=== PATIENT | female | born 1960 | race Hispanic/Latino ===

== ENCOUNTER 2021-07-31 07:34 | Emergency (ER) | payer BC ==
--- NOTE | 2021-07-31 08:23 | RAD REPORT ---
EXAM DESCRIPTION: CT - Head Brain Wo Cont - 07/31/2021 8:11 am CLINICAL HISTORY: Dizziness COMPARISON: None. TECHNIQUE: Computed axial tomography of the head was obtained. IV contrast was not requested. All CT scans are performed using dose optimization technique as appropriate and may include automated exposure control or mA/KV adjustment according to patient size. FINDINGS: An intracranial bleed is not seen . The ventricles are normal in caliber. No significant hypodense areas within the brain visualized No extra-axial fluid collection is noted. Fluid within the sinuses/ mastoids is not seen. IMPRESSION: No acute intracranial abnormality is seen. If patient's symptoms persist MRI of the bra in would be recommended.
[2021-07-31] MEDS ORDERED: MECLIZINE HCL 12.5 MG TAB ONE (08:41)
[2021-07-31] MEDS ORDERED: ONDANSETRON 4 MG/2 ML VIAL ONE (08:42)
[2021-07-31] MEDS ORDERED: NA CHLORIDE 0.9% 1,000 ML ONE (08:42)
[2021-07-31 08:55] LABS: Protime INR 1.04
[2021-07-31 08:56] LABS: Lymphocytes % 27.2 % (15.3-44.8); MPV 8.4 fL (7.6-11.3); RBC Red Blood Cell Count 4.65 M/uL (3.86-4.86)
--- NOTE | 2021-07-31 09:08 | RAD REPORT ---
EXAM DESCRIPTION: [place] Single View07/31/2021 8:43 am CLINICAL HISTORY: cough COMPARISON: 2017 FINDINGS: The lungs appear clear of acute infiltrate. The heart is normal size IMPRESSION: No acute abnormalities displayed
[2021-07-31 09:13] LABS: Albumin 3.5 g/dL (3.4-5.0); Bilirubin Direct 0.2 mg/dL (0-0.2); Bilirubin Total 0.6 mg/dL (0.2-1.0); Magnesium 2.1 mg/dL (1.8-2.4); Potassium 3.5 mmol/L (3.5-5.1); Protein, Total 7.2 g/dL (6.4-8.2); Troponin High Sensitivity 8.8 pg/mL (<58.9)
--- NOTE | 2021-07-31 10:13 | EDPHYS ---
Physician Documentation [facility] Name: Mary Montero Age: 60 yrs Sex: Female : 1960 Arrival Date: 07/31/2021 Time: 07:39 Bed 6 Private MD: ED Physician Herbert Stephens HPI: 07/31 08:16 This 60 yrs old Female presents to ER via Ambulatory with complaints of akbar Nausea, Dizziness. 08:16 The patient presents to the emergency department with nausea. Onset: The akbar symptoms/episode began/occurred this morning, last night. Possible causes: unknown. Historical: - Allergies: 07:55 No Known Allergies; ph - PMHx: 07:55 Hypertension; ph - Immunization history:: Adult Immunizations unknown. - Social history:: Smoking status: Patient denies any tobacco usage or history of. ROS: 08:18 Constitutional: Negative for fever, chills, and weight loss, Eyes: Negative for injury, akbar pain, redness, and discharge, ENT: Negative for injury, pain, and discharge, Neck: Negative for injury, pain, and swelling, Cardiovascular: Negative for chest pain, palpitations, and edema, Respiratory: Negative for shortness of breath, cough, wheezing, and pleuritic chest pain, Abdomen/GI: Negative for abdominal pain, nausea, vomiting, diarrhea, and constipation, Back: Negative for injury and pain, : Negative for injury, bleeding, discharge, and swelling, MS/Extremity: Negative for injury and deformity, Skin: Negative for injury, rash, and discoloration, Psych: Negative for depression, anxiety, suicide ideation, homicidal ideation, and hallucinations, Allergy/Immunology: Negative for hives, rash, and allergies, Endocrine: Negative for neck swelling, polydipsia, polyuria, polyphagia, and marked weight changes, Hematologic/Lymphatic: Negative for swollen nodes, abnormal bleeding, and unusual bruising. 08:18 Neuro: Positive for dizziness, weakness. Exam: 08:18 Constitutional: This is a well developed, well nourished patient who is awake, alert, akbar and in no acute distress. Head/Face: Normocephalic, atraumatic. Eyes: Pupils equal round and reactive to light, extra-ocular motions intact. Lids and lashes normal. Conjunctiva and sclera are non-icteric and not injected. Cornea within normal limits. Periorbital areas with no swelling, redness, or edema. ENT: Nares patent. No nasal discharge, no septal abnormalities noted. Tympanic membranes are normal and external auditory canals are clear. Oropharynx with no redness, swelling, or masses, exudates, or evidence of obstruction, uvula midline. Mucous membranes moist. Neck: Trachea midline, no thyromegaly or masses palpated, and no cervical lymphadenopathy. Supple, full range of motion without nuchal rigidity, or vertebral point tenderness. No Meningismus. Chest/axilla: Normal chest wall appearance and motion. Nontender with no deformity. No lesions are appreciated. Cardiovascular: Regular rate and rhythm with a normal S1 and S2. No gallops, murmurs, or rubs. Normal PMI, no JVD. No pulse deficits. Respiratory: Lungs have equal breath sounds bilaterally, clear to auscultation and percussion. No rales, rhonchi or wheezes noted. No increased work of breathing, no retractions or nasal flaring. Back: No spinal tenderness. No costovertebral tenderness. Full range of motion. Female : Normal external genitalia. Skin: Warm, dry with normal turgor. Normal color with no rashes, no lesions, and no evidence of cellulitis. MS/ Extremity: Pulses equal, no cyanosis. Neurovascular intact. Full, normal range of motion. Neuro: Awake and alert, GCS 15, oriented to person, place, time, and situation. Cranial nerves II-XII grossly intact. Motor strength 5/5 in all extremities. Sensory grossly intact. Cerebellar exam normal. Normal gait. Psych: Awake, alert, with orientation to person, place and time. Behavior, mood, and affect are within normal limits. 08:18 Abdomen/GI: Inspection: abdomen appears normal, Bowel sounds: normal, Palpation: nontender, Liver: no appreciated palpable abnormalities, Hernia: not appreciated. 10:10 ECG was reviewed by the Attending Physician. [facility] Vital Signs: 07:53 BP 161 / 99; Pulse 59; Resp 18; Temp 97.4; Pulse Ox 98% on R/A; ph 08:56 Weight 81.65 kg; ww 09:30 BP 173 / 96; Pulse 45; Resp 18; Pulse Ox 95% ; ww 10:35 BP 176 / 73; Pulse 50; Resp 18; Pulse Ox 95% ; ww 11:25 BP 173 / 75 Supine; Pulse 51; ww 11:25 BP 183 / 89 Sitting; Pulse 51; ww 11:25 BP 180 / 83 Standing; Pulse 53; ww MDM: 07:44 Patient medically screened. akbar 08:20 Differential diagnosis: Nonspecific abd pain, gastritis, pancreatitis, viral akbar gastroenteritis, gastroenteritis. Differential diagnosis: cardiac arrhythmia, CVA, generalized weakness, hypovolemia, idiopathic dizziness, near-syncope, TIA, vertigo. Data reviewed: vital signs, nurses notes, lab test result(s), EKG, radiologic studies, CT scan, doppler. Data interpreted: environmental monitoring technician: rate is 59 beats/min, rhythm is regular, Pulse oximetry: on room air is 98 %. Test interpretation: by ED physician or midlevel provider: ECG, plain radiologic studies. Counseling: I had a detailed discussion with the patient and/or guardian regarding: the historical points, exam findings, and any diagnostic results supporting the discharge/admit diagnosis, lab results, radiology results. 07/31 07:56 Order name: Basic Metabolic Panel; Complete Time: 10:01 [facility] 07/31 07:56 Order name: CBC with Diff; Complete Time: 10:01 [facility] 07/31 07:56 Order name: LFT's; Complete Time: 10:01 [facility] 07/31 07:56 Order name: Magnesium; Complete Time: 10:01 [facility] 07/31 07:56 Order name: NT PRO-BNP; Complete Time: 10:01 [facility] 07/31 07:56 Order name: PT-INR; Complete Time: 10:01 [facility] 07/31 07:56 Order name: Troponin HS; Complete Time: 10:01 [facility] 07/31 07:56 Order name: XRAY Chest (1 view); Complete Time: 10:01 [facility] 07/31 07:56 Order name: CT Head Brain wo Cont; Complete Time: 10:01 [facility] 07/31 07:56 Order name: US Carotid Artery Bilateral; Complete Time: 11:22 [facility] 07/31 08:16 Order name: Lipase; Complete Time: 10:01 [facility] 07/31 10:22 Order name: Urine Dipstick-Ancillary; Complete Time: 11:22 EDNM 07/31 07:56 Order name: EKG; Complete Time: 07:57 [facility] 07/31 07:56 Order name: Cardiac monitoring; Complete Time: 08:10 [facility] 07/31 07:56 Order name: EKG - Nurse/Tech; Complete Time: 08:10 [facility] 07/31 07:56 Order name: IV Saline Lock; Complete Time: 08:35 [facility] 07/31 07:56 Order name: Labs collected and sent; Complete Time: 08:35 [facility] 07/31 07:56 Order name: O2 Per Protocol; Complete Time: 08:43 [facility] 07/31 07:56 Order name: O2 Sat Monitoring; Complete Time: 08:43 [facility] 07/31 07:56 Order name: Urine Dipstick-Ancillary (obtain specimen); Complete Time: 10:23 [facility] 07/31 10:04 Order name: Orthostatics; Complete Time: 10:42 [facility] EC:10 Rate is 54 beats/min. Rhythm is regular. QRS [place] is Normal. [place] interval is normal. QRS akbar interval is normal. QT interval is normal. No Q waves. T waves are Normal. No ST changes noted. Clinical impression: Sinus bradycardia and No evidence of ischemia. Interpreted by me. Reviewed by me. Administered Medications: 08:56 Drug: NS 0.9% (20 ml/kg) 20 ml/kg Route: IV; Rate: 1 bolus; Site: left antecubital; ww 08:56 Drug: Meclizine 50 mg Route: PO; ww 08:57 Drug: Zofran (Ondansetron) 4 mg Route: IVP; Site: left antecubital; ww 09:00 Drug: NS 0.9% (20 ml/kg) 20 ml/kg Route: IV; Rate: 1 bolus; Site: left antecubital; ww 11:25 Drug: Aspirin 81 mg Route: PO; ww Disposition Summary: 07/31/21 10:12 Discharge Ordered Location: Home akbar Problem: new akbar Symptoms: have improved akbar Condition: Stable akbar Diagnosis - Other peripheral vertigo, unspecified ear akbar - Dizziness and giddiness akbar - Essential (primary) hypertension akbar Followup: akbar - With: Private Physician - When: 2 - 3 days - Reason: Recheck today's complaints, Continuance of care, Re-evaluation by your physician Followup: akbar - With: - When: 2 - 3 days - Reason: Recheck today's complaints, Re-evaluation by your physician Followup: akbar - With: Tyrese Zazueta MD - When: 2 - 3 days - Reason: Recheck today's complaints, Re-evaluation by your physician Discharge Instructions: - Discharge Summary Sheet akbar - Benign Positional Vertigo akbar - Dizziness akbar - Hypertension, Adult akbar - Hypertension, Adult, Zjlq-ck-Wfsk akbar - How to Take Your Blood Pressure, Ivqt-hk-Iwkf akbar - Vertigo, Vrfu-ij-Fuie akbar - Aspirin and Your Heart akbar - Dizziness, Ohwr-mm-Hobf akbar - Managing Your Hypertension akbar Forms: - Medication Reconciliation Form akbar - Thank You Letter akbar - Antibiotic Education akbar - Prescription Opioid Use akbar Prescriptions: - Meclizine 25 mg Oral Tablet - take 1 tablet by ORAL route every 8 hours As needed; 30 tablet; Refills: 0, akbar Product Selection Permitted - Zofran 4 mg Oral Tablet - take 1 tablet by ORAL route every 8 hours As needed; 24 tablet; Refills: 0, akbar Product Selection Permitted Signatures: Dispatcher [employer] Herbert Garcia MD MD cha Hall, Patricia, RN RN ph Wood, Whitney, RN RN
--- NOTE | 2021-07-31 10:13 | ER ---
Nurse's Notes [facility] Name: Mary Montero Age: 60 yrs Sex: Female : 1960 Arrival Date: 07/31/2021 Time: 07:39 Bed 6 Private MD: Diagnosis: Other peripheral vertigo, unspecified ear;Dizziness and giddiness;Essential (primary) hypertension Presentation: 07/31 07:53 Chief complaint: Patient states: Dizziness that started yesterday, was seen at [facility] and sent home, also c/o nausea and headache. Coronavirus screen: Vaccine status: Patient reports receiving the 2nd dose of the covid vaccine. Ebola Screen: No symptoms or risks identified at this time. Initial Sepsis Screen: Does the patient meet any 2 criteria? No. Patient's initial sepsis screen is negative. Does the patient have a suspected source of infection? No. Patient's initial sepsis screen is negative. Risk Assessment: Do you want to hurt yourself or someone else? Patient reports no desire to harm self or others. Onset of symptoms was July 31, 2021. 07:53 Method Of Arrival: Ambulatory 07:53 Acuity: SADI 3 Triage Assessment: 07:56 General: Appears in no apparent distress. comfortable, well groomed, Behavior is calm, ph cooperative, appropriate for age, Denies fever, feeling ill. Pain: Complains of pain in left occipital area and right occipital area. Neuro: Level of Consciousness is awake, alert, obeys commands, Oriented to person, place, time, situation, Reports dizziness. Cardiovascular: No deficits noted. Denies chest pain. GI: Reports nausea, Patient currently denies abdominal pain, vomiting. Derm: Skin is intact, is healthy with good turgor, Skin is pink, warm \T\ dry. Musculoskeletal: Circulation, motion, and sensation intact. Range of motion: intact in all extremities. Historical: - Allergies: 07:55 No Known Allergies; ph - PMHx: 07:55 Hypertension; ph - Immunization history:: Adult Immunizations unknown. - Social history:: Smoking status: Patient denies any tobacco usage or history of. Screenin:57 Abuse screen: Denies threats or abuse. Denies injuries from another. Nutritional ph screening: No deficits noted. Tuberculosis screening: No symptoms or risk factors identified. Fall Risk None identified. Assessment: 09:00 General: Appears in no apparent distress. Behavior is calm, cooperative. Pain: Denies ww pain. Neuro: Level of Consciousness is awake, alert, obeys commands, Oriented to person, place, time, Reports dizziness. Cardiovascular: Patient's skin is warm and dry. Respiratory: Airway is patent Respiratory effort is even, unlabored, Respiratory pattern is regular, symmetrical. GI: Abdomen is non-distended, Reports nausea. Derm: Skin is intact. 10:15 Reassessment: Patient appears in no apparent distress at this time. No changes from ww previously documented assessment. Patient and/or family updated on plan of care and expected duration. Pain level reassessed. Patient is alert, oriented x 3, equal unlabored respirations, skin warm/dry/pink. 11:28 Reassessment: Patient appears in no apparent distress at this time. No changes from ww previously documented assessment. Patient and/or family updated on plan of care and expected duration. Pain level reassessed. Patient is alert, oriented x 3, equal unlabored respirations, skin warm/dry/pink. Vital Signs: 07:53 BP 161 / 99; Pulse 59; Resp 18; Temp 97.4; Pulse Ox 98% on R/A; ph 08:56 Weight 81.65 kg; ww 09:30 BP 173 / 96; Pulse 45; Resp 18; Pulse Ox 95% ; ww 10:35 BP 176 / 73; Pulse 50; Resp 18; Pulse Ox 95% ; ww 11:25 BP 173 / 75 Supine; Pulse 51; ww 11:25 BP 183 / 89 Sitting; Pulse 51; ww 11:25 BP 180 / 83 Standing; Pulse 53; ww ED Course: 07:39 Patient arrived in ED. rg4 07:44 Herbert Stephens MD is Attending Physician. akbar 07:46 Alona Small, ALE is Primary Nurse. choi 07:55 Triage completed. ph 07:56 Arm band placed on Patient placed in an exam room, on a stretcher, on pulse oximetry. ph 08:10 EKG done, by ED staff, reviewed by Herbert Stephens MD. mb7 08:13 CT Head Brain wo Cont In Process Unspecified. EDMS 08:35 Bed in low position. Call light in reach. Side rails up X 1. Door closed. Noise oe minimized. Warm blanket given. 08:35 Basic Metabolic Panel Sent. oe 08:35 CBC with Diff Sent. oe 08:35 LFT's Sent. oe 08:35 Magnesium Sent. oe 08:35 NT PRO-BNP Sent. oe 08:35 PT-INR Sent. oe 08:35 Troponin HS Sent. oe 08:35 Lipase Sent. oe 08:36 Inserted saline lock: 20 gauge in left antecubital area, using aseptic technique. Blood mb7 collected. 08:45 XRAY Chest (1 view) In Process Unspecified. EDMS 09:30 No provider procedures requiring assistance completed. ww 10:12 Tk Uribe MD is Referral Physician. akbar 10:12 Tyrese Zazueta MD is Referral Physician. akbar 10:55 Carotid Artery Bilateral In Process Unspecified. EDMS 11:20 IV discontinued, intact, bleeding controlled, No redness/swelling at site. Pressure mb7 dressing applied. Administered Medications: 08:56 Drug: NS 0.9% (20 ml/kg) 20 ml/kg Route: IV; Rate: 1 bolus; Site: left antecubital; ww 08:56 Drug: Meclizine 50 mg Route: PO; ww 08:57 Drug: Zofran (Ondansetron) 4 mg Route: IVP; Site: left antecubital; ww 09:00 Drug: NS 0.9% (20 ml/kg) 20 ml/kg Route: IV; Rate: 1 bolus; Site: left antecubital; ww 11:25 Drug: Aspirin 81 mg Route: PO; ww Outcome: 10:12 Discharge ordered by . akbar 11:29 Discharged to home ww 11:29 Condition: stable 11:29 Discharge instructions given to patient, Instructed on discharge instructions, follow up and referral plans. medication usage, safety practices, Demonstrated understanding of instructions, follow-up care, medications, Prescriptions given X 2. 11:40 Patient left the ED. Signatures: Dispatcher [employer] EDMS Herbert Stephens MD MD cha Smirch, Shelby, RN RN Rosibel Loyola RN RN ph Garcia, Rubi rg4 Otto Treviño Mary mb7 Vicky Ward RN RN ww Au-StagerAlona RN RN ha Corrections: (The following items were deleted from the chart) 08:36 08:34 Inserted saline lock: 20 gauge in left antecubital area, using aseptic technique. oe Blood collected. oe
[2021-07-31 10:22] LABS: Urine Blood Negative (Negative); Urine Glucose Negative (Negative); Urine Protein Negative (Negative); Urine Specific Gravity 1.015 (1.005-1.030); Urine pH 7.5 (5.0-7.0)
[2021-07-31] MEDS ORDERED: ASPIRIN EC 81 MG TAB PO ONE (10:46)
--- NOTE | 2021-07-31 11:16 | RAD REPORT ---
EXAM DESCRIPTION: USCarotid Artery Bilateral07/31/2021 10:53 am CLINICAL HISTORY: dizziness COMPARISON: 2017 FINDINGS: The velocity of the right internal carotid artery equals 94 cm/sec. The right ICA/CCA rati o 2.5 The velocity of the left internal carotid artery equals 54 cm/sec. The left ICA/CCA ratio .9 Mild plaque is present within the carotid arteries. The carotid arteries are tortuous The vertebral arteries demonstrate antegrade flow IMPRESSION: Mild plaque within the carotid arteries without evidence of a hemodynamically significan t stenosis NASCET criteria used. Mild 0-49% stenosis Moderate 50-69% stenosis Severe 70-99% stenosis
[2021-07-31 11:54] VITALS: O2SAT 95
[2021-07-31 11:57] VITALS: BP 180/83
[2021-07-31 12:03] VITALS: TEMP 97.4
--- NOTE | 2021-08-01 08:59 | EKG ---
Test Date: 2021-07-31 Test Time: 07:56:15 Methodologist: GRACE MEASUREMENT RESULTS: Intervals: Rate: 54 UT: 158 QRSD: 84 QT: 476 QTc: 451 [place]: P: 55 UT: 158 QRS: 43 T: 72 INTERPRETIVE STATEMENTS: Sinus bradycardia Otherwise normal ECG Compared to ECG 04/09/2016 05:46:27 T-wave abnormality no longer present Prolonged QT interval no longer present Electronically Signed On 08-01-21 08:56:44 CDT by Tyrese Zazueta
== END 2021-07-31 11:40 | disposition home or self-care (01) ==
LOC: ER 07:34
DX: H81.399 Other peripheral vertigo, unspecified ear (principal); I10 Essential (primary) hypertension; R53.1 Weakness; R11.0 Nausea
CPT/HCPCS: 93005; 85025; 80048; 36415; 83735; 85610; 80076; 81003; 84484; 83690; 83880; 70450; 71045; 93880; 96374; 99284; J8597; J7030; J2405

== ENCOUNTER 2021-09-14 12:44 | Emergency (ER) | payer SELFPAY ==
--- NOTE | 2021-09-14 14:20 | RAD REPORT ---
EXAM DESCRIPTION: RAD - Knee Left 3 View - 09/14/2021 2:14 pm CLINICAL HISTORY: PAIN COMPARISON: No comparisons FINDINGS: No acute fracture. No malalignment. No significant focal degenerative changes. IMPRESSION: No acute osseous abnormality involving the left knee.
--- NOTE | 2021-09-14 14:21 | RAD REPORT ---
EXAM DESCRIPTION: RAD - C Spine Ap/Lat - 09/14/2021 2:14 pm CLINICAL HISTORY: PAIN COMPARISON: C Spine Ap/Lat dated 04/15/2018 FINDINGS: No acute fracture. No malalignment. Multilevel endplate spurring. Mild disc height loss is present at C6-7. IMPRESSION: No acute osseous abnormality involving the cervical spine.
--- NOTE | 2021-09-14 14:21 | RAD REPORT ---
EXAM DESCRIPTION: RAD - Lumbar Spine 3 Views - 09/14/2021 2:14 pm CLINICAL HISTORY: PAIN COMPARISON: Lumbar Spine 3 Views dated 04/15/2018; LUMBAR SPINE 3 VIEWS dated 06/05/2014; LUMBAR SPINE 3 VIEWS dated 09/02/2013; LUMBAR SPINE 3 VIEWS dated 10/19/2008 FINDINGS: No acute fracture. Grade 1 anterolisthesis of L4 on L5. Partially imaged levoconvex scolio sis. No significant focal degenerative changes. Surgical clips in the right upper quadrant. IMPRESSION: No acute osseous abnormality involving the lumbar spine.
--- NOTE | 2021-09-14 14:49 | EDPHYS ---
Physician Documentation [facility] Name: Mary Montero Age: 60 yrs Sex: Female : 1960 Arrival Date: 09/14/2021 Time: 12:47 Bed 10 Private MD: ED Physician Bhavesh Guerrero HPI: 09/14 14:45 This 60 yrs old Female presents to ER via Ambulatory with complaints of Fall rn Injury, Back Pain. 14:45 Details of fall: The patient fell from an upright position, while walking. Onset: The rn symptoms/episode began/occurred yesterday. Associated injuries: The patient sustained neck injury, injury to the low back. Severity of symptoms: At their worst the symptoms were mild, in the emergency department the symptoms are unchanged. The patient has not experienced similar symptoms in the past. The patient has not recently seen a physician. Historical: - Allergies: 13:16 Pepto-Bismol; ss - PMHx: 13:16 Hypertension; ss - PSHx: 13:16 Cholecystectomy; ss - Immunization history:: Client reports receiving the 2nd dose of the Covid vaccine. - Social history:: Smoking status: Patient denies any tobacco usage or history of. - Family history:: not pertinent. - Hospitalizations: : No recent hospitalization is reported. ROS: 14:45 Constitutional: Negative for fever, chills, and weight loss, Eyes: Negative for injury, rn pain, redness, and discharge, Neck: + neck and lower back pain Cardiovascular: Negative for chest pain, palpitations, and edema, Respiratory: Negative for shortness of breath, cough, wheezing, and pleuritic chest pain, Abdomen/GI: Negative for abdominal pain, nausea, vomiting, diarrhea, and constipation, Back: Negative for injury and pain, MS/Extremity: + left knee pain Skin: Negative for injury, rash, and discoloration, Neuro: Negative for headache, weakness, numbness, tingling, and seizure. Exam: 14:45 Constitutional: This is a well developed, well nourished patient who is awake, alert, rn and in no acute distress. Head/Face: Normocephalic, atraumatic. Eyes: Periorbital areas with no swelling, redness, or edema. Neck: NO midline cervical tenderness Chest/axilla: Normal chest wall appearance and motion. Nontender with no deformity. No lesions are appreciated. Cardiovascular: Regular rate and rhythm . No pulse deficits. Respiratory: No increased work of breathing, no retractions or nasal flaring. Abdomen/GI: Soft, non-tender Skin: Warm, dry MS/ Extremity: Pulses equal, no cyanosis. Neurovascular intact. Full, normal range of motion. Equal circumference. Mild tenderness anterior left knee. Neuro: Awake and alert, GCS 15, oriented to person, place, time, and situation. Cranial nerves II-XII grossly intact. Motor strength 5/5 in all extremities. Sensory grossly intact. Cerebellar exam normal. Normal gait. Vital Signs: 13:15 BP 179 / 83; Pulse 55; Resp 16; Temp 98.0(TE); Pulse Ox 98% on R/A; Weight 90.72 kg; ss Pain 7/10; MDM: 13:21 Patient medically screened. rn 14:45 Differential diagnosis: contusion, fracture, sprain, strain. Data reviewed: vital rn signs, nurses notes, radiologic studies, plain films, and as a result, I will discharge patient. Counseling: I had a detailed discussion with the patient and/or guardian regarding: the historical points, exam findings, and any diagnostic results supporting the discharge/admit diagnosis, radiology results, the need for outpatient follow up, to return to the emergency department if symptoms worsen or persist or if there are any questions or concerns that arise at home. Special discussion: I discussed with the patient/guardian in detail that at this point there is no indication for admission to the hospital. It is understood, however, that if the symptoms persist or worsen the patient needs to return immediately for re-evaluation. ED course: NO acute findings on plain films, will dc home as contusion/muscular pain. 09/14 13:27 Order name: XRAY Knee LEFT 3 view; Complete Time: 14:29 rn 09/14 13:27 Order name: XRAY Lumbar Spine (3 Views); Complete Time: 14:29 rn 09/14 13:27 Order name: XRAY C Spine Ap/lat; Complete Time: 14:29 rn Administered Medications: No medications were administered Disposition Summary: 09/14/21 14:48 Discharge Ordered Location: Home rn Problem: new rn Symptoms: have improved rn Condition: Stable rn Diagnosis - Contusion of unspecified part of neck, initial encounter rn - Contusion of lower back and pelvis rn - Contusion of left knee rn Followup: rn - With: Private Physician - When: As needed - Reason: Recheck today's complaints, Re-evaluation by your physician Discharge Instructions: - Discharge Summary Sheet rn - Contusion rn - Neck Contusion rn Forms: - Medication Reconciliation Form rn - Thank You Letter rn - Antibiotic angle furnaceman - Prescription Opioid Use rn Signatures: Dispatcher [employer] EDBhavesh Martin MD MD rn Smirch, Shelby, RN RN ss
--- NOTE | 2021-09-14 14:49 | ER ---
Nurse's Notes [facility] Name: Mary Montero Age: 60 yrs Sex: Female : 1960 Arrival Date: 09/14/2021 Time: 12:47 Bed 10 Private MD: Diagnosis: Contusion of unspecified part of neck, initial encounter;Contusion of lower back and pelvis;Contusion of left knee Presentation: 09/14 13:15 Chief complaint: Patient states: Back pain after falling yesterday. Coronavirus screen: ss Client denies travel out of the [place] in the last 14 days. Ebola Screen: Patient denies exposure to infectious person. Patient denies travel to an Ebola-affected area in the 21 days before illness onset. Initial Sepsis Screen: Does the patient meet any 2 criteria? No. Patient's initial sepsis screen is negative. Does the patient have a suspected source of infection? No. Patient's initial sepsis screen is negative. Risk Assessment: Do you want to hurt yourself or someone else? Patient reports no desire to harm self or others. Onset of symptoms was September 13, 2021. 13:15 Method Of Arrival: Ambulatory ss 13:15 Acuity: SADI 4 ss Historical: - Allergies: 13:16 Pepto-Bismol; ss - PMHx: 13:16 Hypertension; ss - PSHx: 13:16 Cholecystectomy; ss - Immunization history:: Client reports receiving the 2nd dose of the Covid vaccine. - Social history:: Smoking status: Patient denies any tobacco usage or history of. - Family history:: not pertinent. - Hospitalizations: : No recent hospitalization is reported. Vital Signs: 13:15 BP 179 / 83; Pulse 55; Resp 16; Temp 98.0(TE); Pulse Ox 98% on R/A; Weight 90.72 kg; ss Pain 7/10; ED Course: 12:47 Patient arrived in ED. mr 13:16 Triage completed. ss 13:16 Arm band placed on right wrist. ss 13:21 Bhavesh Guerrero MD is Attending Physician. rn 14:15 XRAY Knee LEFT 3 view In Process Unspecified. EDMS 14:15 XRAY Lumbar Spine (3 Views) In Process Unspecified. EDMS 14:16 XRAY C Spine Ap/lat In Process Unspecified. EDMS 15:11 Marisol Mcfadden, RN is Primary Nurse. iw Administered Medications: No medications were administered Outcome: 14:48 Discharge ordered by . rn 15:11 Patient left the ED. iw Signatures: Dispatcher [employer] EDMI Jocelyn Gomez mr Marisol Mcfadden, RN RN Bhavesh Pérez MD MD rn Smirch, Shelby, RN RN ss
[2021-09-14 15:19] VITALS: BP 179/83; TEMP 98; O2SAT 98
== END 2021-09-14 15:11 | disposition home or self-care (01) ==
LOC: ER 12:44
DX: S10.93XA Contusion of unspecified part of neck, initial encounter (principal); S30.0XXA Contusion of lower back and pelvis, initial encounter; S80.02XA Contusion of left knee, initial encounter; I10 Essential (primary) hypertension; Z88.8 Allergy status to other drugs, medicaments and biological substances
CPT/HCPCS: 72040; 72100; 99282

== ENCOUNTER 2022-10-06 10:12 | Emergency (ER) | payer OTHER, SELFPAY ==
[2022-10-06 10:46] LABS: Hematocrit 41.1 % (36.0-45.0); Lymphocytes % 18.7 % (15.3-44.8); MCV 89.3 fL (80-100); RBC Red Blood Cell Count 4.61 M/uL (3.86-4.86)
[2022-10-06] MEDS ORDERED: MECLIZINE HCL 12.5 MG TAB ONE (10:49)
[2022-10-06] MEDS ORDERED: METOCLOPRAMIDE 10 MG/2mL INJ ONE (10:49)
[2022-10-06] MEDS ORDERED: NA CHLORIDE 0.9% 1,000 ML ONE (10:49)
[2022-10-06] MEDS ORDERED: DIPHENHYDRAMINE 50 MG/ML VIAL ONE (10:49)
[2022-10-06] MEDS ORDERED: ACETAMINOPHEN 500 MG TAB ONE (10:49)
--- NOTE | 2022-10-06 10:54 | RAD REPORT ---
EXAM DESCRIPTION: CT - Head Brain Wo Cont - 10/06/2022 10:43 am CLINICAL HISTORY: DIZZINESS COMPARISON: Head Brain Wo Cont dated 07/31/2021 TECHNIQUE: Noncontrast head CT images were obtained without IV contrast. Multiplanar reformats were generated and reviewed. All CT scans are performed using dose optimization technique as appropriate and may include automated exposure control or mA/KV adjustment according to patient size. FINDINGS: No intracranial hemorrhage, mass, or edema. Midline structures are unremarkable. Normal ventricular caliber for age. Barry-white matter differentiation is preserved, without evidence of acute infarct. No abnormal extra- axial fluid collections. Mastoid air cells and visualized portions of the paranasal sinuses are clear. No acute bony findings. IMPRESSION: No evidence of an acute intracranial process. The findings were communicated to Herbert Stephens on 10/06/2022 at 10:50 hours.
[2022-10-06 11:27] LABS: Albumin 3.6 g/dL (3.4-5.0); Magnesium 2.3 mg/dL (1.6-2.4); Potassium 3.6 mEq/L (3.5-5.1); Protein, Total 7.2 g/dL (6.4-8.2); Troponin High Sensitivity 6.8 pg/mL (<58.9)
--- NOTE | 2022-10-06 11:47 | ER ---
Nurse's Notes [facility] Name: Mary Montero Age: 61 yrs Sex: Female : 1960 Arrival Date: 10/06/2022 Time: 10:12 Bed 13 Private MD: Diagnosis: Benign paroxysmal vertigo, unspecified ear Presentation: 10/06 10:15 Chief complaint: Pt's son states "she woke up fine and then she started feeling dizzy aa5 and with nausea". Pt also reports frontal head pressure. Reports previous dizziness episodes and was told by doctor she had fluid in ears last time it occurred. 10:15 Coronavirus screen: At this time, the client does not indicate any symptoms associated aa5 with coronavirus-19. Ebola Screen: Patient denies travel to an Ebola-affected area in the 21 days before illness onset. Initial Sepsis Screen: Does the patient meet any 2 criteria? No. Patient's initial sepsis screen is negative. Does the patient have a suspected source of infection? No. Patient's initial sepsis screen is negative. Risk Assessment: Do you want to hurt yourself or someone else? Patient reports no desire to harm self or others. Onset of symptoms was October 06, 2022. 10:15 Acuity: SADI 3 aa5 10:15 Method Of Arrival: Ambulatory aa5 Historical: - Allergies: 10:21 Pepto-Bismol; aa5 - PMHx: 10:21 Hypertension; aa5 - PSHx: 10:21 Cholecystectomy; aa5 - Immunization history:: Adult Immunizations unknown. - Social history:: Smoking status: Patient denies any tobacco usage or history of. - Family history:: not pertinent. Screenin:15 [facility] ED Fall Risk Assessment (Adult) Score/Fall Risk Level 0 - 2 = Low Risk. Abuse eh3 screen: Denies threats or abuse. Denies injuries from another. Nutritional screening: No deficits noted. Tuberculosis screening: No symptoms or risk factors identified. Assessment: 10:15 General: Appears in no apparent distress. uncomfortable, Behavior is calm, cooperative, eh3 appropriate for age. Pain: Denies pain. Neuro: Level of Consciousness is awake, alert, obeys commands, Oriented to person, place, time, situation. Neuro: Reports dizziness. Cardiovascular: Capillary refill < 3 seconds Patient's skin is warm and dry. Respiratory: Airway is patent Respiratory effort is even, unlabored, Respiratory pattern is regular, symmetrical. GI: Abdomen is round non-distended, Reports nausea. Derm: Skin is intact, is healthy with good turgor. Musculoskeletal: Circulation, motion, and sensation intact. 11:15 Reassessment: Patient appears in no apparent distress at this time. Patient and/or eh3 family updated on plan of care and expected duration. Pain level reassessed. Patient is alert, oriented x 3, equal unlabored respirations, skin warm/dry/pink. Vital Signs: 10:15 BP 197 / 90; Pulse 60; Resp 16 S; Temp 98.3(TE); Pulse Ox 100% on R/A; aa5 11:15 BP 120 / 71; Pulse 55; Resp 16; Pulse Ox 98% on R/A; eh3 ED Course: 10:15 Patient arrived in ED. ts1 10:15 Richmond Feldman MD is Attending Physician. rt 10:15 Arm band placed on. aa5 10:15 Patient has correct armband on for positive identification. Bed in low position. Call eh3 light in reach. Side rails up X2. Adult w/ patient. Provided Education on: N/A. Pulse ox on. NIBP on. Door closed. Noise minimized. Lights dimmed. Warm blanket given. 10:22 Triage completed. aa5 10:33 Coretta Loyola, RN is Primary Nurse. eh3 10:35 Magnesium Sent. rs5 10:35 Troponin High Sensitivity Sent. rs5 10:35 CMP Sent. rs5 10:35 CBC with Diff Sent. rs5 10:35 Inserted saline lock: 20 gauge in left antecubital area, using aseptic technique. Blood rs5 collected. 10:45 CT Head Brain wo Cont In Process Unspecified. EDMS 11:54 No provider procedures requiring assistance completed. IV discontinued, intact, eh3 bleeding controlled, No redness/swelling at site. Pressure dressing applied. Administered Medications: 11:08 Drug: Meclizine PO 50 mg Route: PO; eh3 11:40 Follow up: Response: No adverse reaction eh3 11:08 Drug: metoCLOPramide IVP 10 mg Route: IVP; Site: left antecubital; eh3 11:40 Follow up: Response: No adverse reaction 3 11:08 Drug: diphenhydrAMINE IVP 25 mg Route: IVP; Site: left antecubital; 3 11:40 Follow up: Response: No adverse reaction 3 11:08 Drug: Acetaminophen PO 1000 mg Route: PO; 3 11:40 Follow up: Response: No adverse reaction 3 11:08 Drug: NS 0.9% IV 1000 ml Route: IV; Rate: 1 bolus; Site: left antecubital; 3 11:52 Follow up: IV Status: Completed infusion; IV Intake: 600ml [facility] Medication: 11:54 VIS not applicable for this client. 3 Intake: 11:52 IV: 600ml; Total: 600ml. 3 Outcome: 11:46 Discharge ordered by MD. rt 11:54 Discharged to home ambulatory, with family. [facility] 11:54 Condition: stable 11:54 Discharge instructions given to patient, family, Instructed on discharge instructions, follow up and referral plans. medication usage, Demonstrated understanding of instructions, follow-up care, medications, Prescriptions given X 1. 12:03 Patient left the ED. [facility] Signatures: Dispatcher [employer] EDKaty Jaime RN RN aa5 Coretta Loyola RN RN eh3 Richmond Feldman MD MD rt Vance Christianson rs5 Janet Leal PAS PAS ts1
--- NOTE | 2022-10-06 11:47 | EDPHYS ---
Physician Documentation [facility] Name: Mary Montero Age: 61 yrs Sex: Female : 1960 Arrival Date: 10/06/2022 Time: 10:12 Bed 13 Private MD: ED Physician Richmond Feldman HPI: 10/06 10:34 This 61 yrs old Female presents to ER via Ambulatory with complaints of rt Dizziness, Nausea. 10:34 Patient presents to the ED with dizziness, nausea. This occurred about 1 year ago, was rt diagnosed with vertigo at that time. She states that symptoms are not as severe at this time but are still present. Reports a head pressure but denies overt headache. Denies other acute complaints at this time or other aggravating alleviating factors, symptoms are moderate severity.. Historical: - Allergies: 10:21 Pepto-Bismol; aa5 - PMHx: 10:21 Hypertension; aa5 - PSHx: 10:21 Cholecystectomy; aa5 - Immunization history:: Adult Immunizations unknown. - Social history:: Smoking status: Patient denies any tobacco usage or history of. - Family history:: not pertinent. ROS: 10:34 Constitutional: Negative for fever, chills, and weight loss, Cardiovascular: Negative rt for chest pain, palpitations, and edema, Respiratory: Negative for shortness of breath, cough, wheezing, and pleuritic chest pain, MS/Extremity: Negative for injury and deformity, Skin: Negative for injury, rash, and discoloration, Psych: Negative for depression, anxiety, suicide ideation, homicidal ideation, and hallucinations. 10:34 Abdomen/GI: Positive for nausea, Negative for abdominal pain. 10:34 Neuro: Positive for dizziness, Negative for altered mental status. Exam: 10:34 Constitutional: This is a well developed, well nourished patient who is awake, alert, rt and in no acute distress. Head/Face: Normocephalic, atraumatic. Chest/axilla: Normal chest wall appearance and motion. Nontender with no deformity. No lesions are appreciated. Cardiovascular: Regular rate and rhythm with a normal S1 and S2. No gallops, murmurs, or rubs. Normal PMI, no JVD. No pulse deficits. Respiratory: Lungs have equal breath sounds bilaterally, clear to auscultation and percussion. No rales, rhonchi or wheezes noted. No increased work of breathing, no retractions or nasal flaring. Abdomen/GI: Soft, non-tender, with normal bowel sounds. No distension or tympany. No guarding or rebound. No evidence of tenderness throughout. Skin: Warm, dry with normal turgor. Normal color with no rashes, no lesions, and no evidence of cellulitis. MS/ Extremity: Pulses equal, no cyanosis. Neurovascular intact. Full, normal range of motion. Psych: Awake, alert, with orientation to person, place and time. Behavior, mood, and affect are within normal limits. 10:34 Eyes: Extraocular muscles intact, pupils equally round and reactive, conjunctiva normal, head impulse and test of skew negative, 1-2 beats of right going lateral nystagmus. 10:34 Neuro: Speech normal, current nerves II through XII intact, strength and sensation intact in upper and lower extremities, no ataxia on [id number]. 10:55 ECG was reviewed by the Attending Physician. rt Vital Signs: 10:15 BP 197 / 90; Pulse 60; Resp 16 S; Temp 98.3(TE); Pulse Ox 100% on R/A; aa5 11:15 BP 120 / 71; Pulse 55; Resp 16; Pulse Ox 98% on R/A; eh3 MDM: 10:17 Patient medically screened. rt 11:47 Differential diagnosis: Peripheral vertigo, CVA. Data reviewed: vital signs, nurses rt notes, lab test result(s), EKG, radiologic studies. Consideration of Admission/Observation Escalation of care including admission/observation considered. HI NTS exam is consistent with a peripheral vertigo, NIHSS is 0, symptoms are improving with treatment in the ED, patient's presentation is most consistent with a benign vestibular vertigo as compared to central vertigo, does not require admission for CVA work-up. I considered the following discharge prescriptions or medication management in the emergency department Medications were administered in the Emergency Department. See MAR. Independent interpretation of the following test(s) in the Emergency Department CT Scan: My interpretation is No hemorrhage seen on interpretation of CT scan images. Test considered but Not performed: MRI: Presentation most consistent with peripheral vertigo, MRI not indicated. Care significantly affected by the following chronic conditions: Hypertension. Counseling: I had a detailed discussion with the patient and/or guardian regarding: the historical points, exam findings, and any diagnostic results supporting the discharge/admit diagnosis, lab results, radiology results, the need for outpatient follow up, to return to the emergency department if symptoms worsen or persist or if there are any questions or concerns that arise at home. 10/06 10:24 Order name: CBC with Diff; Complete Time: 10:54 rt 10/06 10:24 Order name: CMP; Complete Time: 11:32 rt 10/06 10:24 Order name: Troponin High Sensitivity; Complete Time: 11:32 rt 10/06 10:24 Order name: Magnesium; Complete Time: 11:32 rt 10/06 10:24 Order name: CT Head Brain wo Cont; Complete Time: 10:54 rt 10/06 10:38 Order name: EKG; Complete Time: 10:38 rt 10/06 10:38 Order name: EKG - Nurse/Tech; Complete Time: 10:53 rt EC:55 Rate is 50 beats/min. Rhythm is regular, Sinus bradycardia with No ectopy. QRS [place] is rt Normal. AL interval is normal. QRS interval is normal. QT interval is normal. No Q waves. T waves are Normal. No ST changes noted. Interpreted by me. Administered Medications: 11:08 Drug: Meclizine PO 50 mg Route: PO; 3 11:40 Follow up: Response: No adverse reaction eh3 11:08 Drug: metoCLOPramide IVP 10 mg Route: IVP; Site: left antecubital; eh3 11:40 Follow up: Response: No adverse reaction eh3 11:08 Drug: diphenhydrAMINE IVP 25 mg Route: IVP; Site: left antecubital; eh3 11:40 Follow up: Response: No adverse reaction eh3 11:08 Drug: Acetaminophen PO 1000 mg Route: PO; eh3 11:40 Follow up: Response: No adverse reaction eh3 11:08 Drug: NS 0.9% IV 1000 ml Route: IV; Rate: 1 bolus; Site: left antecubital; eh3 11:52 Follow up: IV Status: Completed infusion; IV Intake: 600ml 3 Disposition Summary: 10/06/22 11:46 Discharge Ordered Location: Home rt Problem: new rt Symptoms: have improved rt Condition: Stable rt Diagnosis - Benign paroxysmal vertigo, unspecified ear rt Followup: rt - With: Private Physician - When: 2 - 3 days - Reason: Discharge Instructions: - Discharge Summary Sheet rt - Benign Positional Vertigo rt Forms: - Medication Reconciliation Form rt - Thank You Letter rt - Antibiotic Education rt - Prescription Opioid Use rt - Patient Portal Instructions rt Prescriptions: - Meclizine 25 mg Oral Tablet - take 1 tablet by ORAL route every 8 hours As needed; 30 tablet; Refills: 0, rt Product Selection Permitted Signatures: Dispatcher [employer] Katy Velazquez RN RN aa5 Coretta Loyola RN RN eh3 Richmond Feldman MD MD rt
[2022-10-06 13:24] VITALS: TEMP 98.3
[2022-10-06 13:27] VITALS: BP 120/71; O2SAT 98
--- NOTE | 2022-10-09 11:52 | EKG ---
Test Date: 2022-10-06 Test Time: 10:50:28 [employer] Professor: CAL MEASUREMENT RESULTS: Intervals: Rate: 50 TX: 170 QRSD: 90 QT: 454 QTc: 413 [place]: P: 40 TX: 170 QRS: 34 T: 84 INTERPRETIVE STATEMENTS: Sinus bradycardia Nonspecific T wave abnormality Abnormal ECG Compared to ECG 07/31/2021 07:56:15 T-wave abnormality now present Electronically Signed On 10-09-22 11:47:09 CDT by Jono Read
== END 2022-10-06 12:03 | disposition home or self-care (01) ==
LOC: ER 10:12
DX: H81.10 Benign paroxysmal vertigo, unspecified ear (principal); I10 Essential (primary) hypertension; Z88.8 Allergy status to other drugs, medicaments and biological substances
CPT/HCPCS: 96361; 93005; 85025; 36415; 83735; 84484; 80053; 70450; 96375; 96374; 99284; J8597; J2765; J1200; J7030

== ENCOUNTER → 2023-05-11 | Emergency (ER) | payer OTHER ==
[~2023-05-11] MED LIST: CLINDAMYCIN 900MG/D5W 900 MG/50 ML IVPB IV ONE
[2023-05-11 14:25] LABS: Absolute Lymphocytes (CBC) 1.4 K/uL (0.7-4.9); Hematocrit 39.3 % (36.0-45.0); Lymphocytes % 25.5 % (15.3-44.8); MCV 88.4 fL (80-100); MPV 7.9 fL (7.6-11.3); Platelets 219 thou/uL (152-406); RBC Red Blood Cell Count 4.44 M/uL (3.86-4.86)
--- NOTE | 2023-05-11 14:33 | RAD REPORT ---
EXAM DESCRIPTION: MELIChest Single View05/11/2023 1:38 pm CLINICAL HISTORY: edema COMPARISON: Chest Single View dated 04/13/2023; Chest Single View dated 07/31/2021; Chest Single View d ated 04/08/2016; CHEST SINGLE VIEW dated 02/17/2012 TECHNIQUE: Portable AP view of the chest. FINDINGS: The lungs are clear. No pneumothorax or effusion. The cardiomediastinal contours are unre markable. IMPRESSION: No acute cardiopulmonary process.
--- NOTE | 2023-05-11 14:33 | RAD REPORT ---
EXAM DESCRIPTION: US - Extremity Venous Uni Ltd - 05/11/2023 1:54 pm CLINICAL HISTORY: Pain, swelling COMPARISON: None. TECHNIQUE: Real-time sonographic evaluation of the right lower extremity deep venous system was perf ormed. FINDINGS: Normal compressibility, flow augmentation, phasic flow and spontaneous flow is identified in the right lower extremity deep venous system. No intraluminal filling defects seen. IMPRESSION: No DVT in the right lower extremity.
[2023-05-11 14:34] LABS: Protime INR 1.06
--- NOTE | 2023-05-11 14:34 | RAD REPORT ---
EXAM DESCRIPTION: RAD - Tib Fib Right - 05/11/2023 1:37 pm CLINICAL HISTORY: osteo COMPARISON: No comparisons TECHNIQUE: Right tibia and fibula, 2 views. FINDINGS: No fracture is identified. There is no dislocation or periosteal reaction noted. No acute or suspicious bony finding. Soft tissue swelling most pronounced along the anterior lower leg. Insert the time medial lower leg m ineralization favored to be vascular. Enthesopathy at the Achilles tendon attachment. IMPRESSION: No acute or suspicious osseous abnormality. Soft tissue swelling as above.
[2023-05-11 14:44] LABS: Albumin 3.5 g/dL (3.4-5.0); Bilirubin Total 0.6 mg/dL (0.2-1.0); Potassium 3.4 mEq/L (3.5-5.1); Protein, Total 7.4 g/dL (6.4-8.2)
--- NOTE | 2023-05-11 16:38 | ER ---
Nurse's Notes [facility] Name: Mary Montero Age: 62 yrs Sex: Female : 1960 Arrival Date: 05/11/2023 Time: 12:52 Bed 12 Private MD: Diagnosis: Cellulitis of right lower limb Presentation: 05/11 13:15 Chief complaint: Patient's son or daughter states: her right leg has been getting bad iw over the past 3 weeks, there is darkening around her elizondo and they told her she has issues with her vein. Coronavirus screen: At this time, the client does not indicate any symptoms associated with coronavirus-19. Ebola Screen: Patient negative for fever greater than or equal to 101.5 degrees Fahrenheit, and additional compatible Ebola Virus Disease symptoms Patient denies exposure to infectious person. Patient denies travel to an Ebola-affected area in the 21 days before illness onset. No symptoms or risks identified at this time. Initial Sepsis Screen: Does the patient meet any 2 criteria? No. Patient's initial sepsis screen is negative. Does the patient have a suspected source of infection? No. Patient's initial sepsis screen is negative. Risk Assessment: Do you want to hurt yourself or someone else? Patient reports no desire to harm self or others. Onset of symptoms was April 22, 2023. 13:15 Method Of Arrival: Ambulatory iw 13:15 Acuity: SADI 3 iw Historical: - Allergies: 13:16 Pepto-Bismol; iw - PMHx: 17:19 Hypertension; aa5 - PSHx: 17:19 section; Cholecystectomy; aa5 - Immunization history:: Adult Immunizations up to date. - Social history:: Smoking status: Patient denies any tobacco usage or history of. Screenin:18 [facility] ED Fall Risk Assessment (Adult) Score/Fall Risk Level 0 - 2 = Low Risk. Abuse as6 screen: Denies threats or abuse. Denies injuries from another. Nutritional screening: No deficits noted. Tuberculosis screening: No symptoms or risk factors identified. Assessment: 17:19 General: Appears in no apparent distress. Behavior is calm, cooperative. Pain: as6 Complains of pain in right elizondo. Derm: Wound noted right elizondo. Vital Signs: 13:15 BP 167 / 90; Pulse 68; Resp 16; Temp 98.4; Pulse Ox 96% on R/A; Weight 90.72 kg; Height iw 4 ft. 8 in. ; 17:19 BP 147 / 86; Pulse 71; Resp 16 S; Pulse Ox 99% on R/A; as6 13:15 Body Mass Index 44.84 (90.72 kg, 142.24 cm) iw ED Course: 12:55 Patient arrived in ED. mg5 13:01 Yoly Cornejo PA-C is PHCP. sb4 13:01 Herbert Stephens MD is Attending Physician. sb4 13:16 Triage completed. iw 13:19 Arm band placed on. iw 13:39 Tib Fib Right XRAY In Process Unspecified. EDMS 13:39 Chest Single View XRAY In Process Unspecified. EDMS 13:56 Extremity Venous Uni Ltd US In Process Unspecified. EDMS 14:14 BNP Sent. bc6 14:14 Blood Culture Adult (2) Sent. bc6 14:14 CBC with Diff Sent. bc6 14:14 CMP Sent. bc6 14:14 Lactate w/ 2H reflex if indic. Sent. bc6 14:14 Protime (+inr) Sent. bc6 14:14 Ptt, Activated Sent. bc6 14:14 Inserted saline lock: 20 gauge in right antecubital area, using aseptic technique. bc6 Blood collected. 16:37 Anjum Oliver MD is Referral Physician. sb4 17:18 Bed in low position. Call light in reach. Provided Education on: follow up, abx as6 teaching . 17:18 No provider procedures requiring assistance completed. IV discontinued, intact, as6 bleeding controlled, No redness/swelling at site. Pressure dressing applied. Administered Medications: 16:45 Drug: Clindamycin IVPB 900 mg IVPB once over 30 mins; (mix in 50 mL) Route: IVPB; aa5 Infused Over: 30 mins; Site: right antecubital; 17:17 Follow up: Response: No adverse reaction; IV Status: Completed infusion; IV Intake: [id number] Medication: 17:18 VIS not applicable for this client. as6 Intake: 17:17 IV: 50ml; Total: 50ml. as6 Outcome: 16:37 Discharge ordered by . sb4 17:18 Discharged to home ambulatory, with family, as6 17:18 Condition: stable 17:18 Discharge instructions given to patient, Instructed on discharge instructions, follow up and referral plans. medication usage, Demonstrated understanding of instructions, follow-up care, medications, Prescriptions given X 1, 17:19 Patient left the ED. as6 Signatures: Dispatcher [employer] EDMS Marisol Mcfadden, RN ALE iw Katy Ruiz RN RN aa5 Dany Sutherland RN RN as6 Yoly Cornejo, RICHARD PARere walter4 Janice Krishnan 6 Elysia Wells mg5 Corrections: (The following items were deleted from the chart) 13:19 13:15 Resp 16bpm; Pulse Ox 96% RA; Temp 98.4F; iw brigitte
--- NOTE | 2023-05-11 16:38 | EDPHYS ---
Physician Documentation [facility] Name: Mary Monetro Age: 62 yrs Sex: Female : 1960 Arrival Date: 05/11/2023 Time: 12:52 Bed 12 Private MD: ED Physician Herbert Stephens HPI: 05/11 13:22 This 62 yrs old Female presents to ER via Ambulatory with complaints of Leg sb4 Pain. 13:22 The patient presents with cellulitis of the right elizondo and anterior aspect of right sb4 ankle. Description: swollen, tense, warm. Onset: The symptoms/episode began/occurred 3 week(s) ago. Possible cause(s): unknown. Associated signs and symptoms: Pertinent positives: drainage, erythema, fever, swelling. The patient has not recently seen a physician. Historical: - Allergies: 13:16 Pepto-Bismol; iw - PMHx: 17:19 Hypertension; aa5 - PSHx: 17:19 section; Cholecystectomy; aa5 - Immunization history:: Adult Immunizations up to date. - Social history:: Smoking status: Patient denies any tobacco usage or history of. ROS: 13:22 Cardiovascular: Negative for chest pain, palpitations, and edema, sb4 13:22 Constitutional: Positive for chills, fever, 13:22 MS/extremity: Positive for ecchymosis, pain, swelling, tenderness, warmth, 13:22 All other systems are negative, Exam: 13:22 Constitutional: This is a well developed, well nourished patient who is awake, alert, sb4 and in no acute distress. Head/Face: Normocephalic, atraumatic. Eyes: Extra-ocular motions intact. Periorbital areas with no swelling, redness, or edema. ENT: Mucous membranes moist. Cardiovascular: Regular rate and rhythm with a normal S1 and S2. Respiratory: Lungs have equal breath sounds bilaterally, clear to auscultation and percussion. No rales, rhonchi or wheezes noted. No increased work of breathing, no retractions or nasal flaring. Abdomen/GI: Soft, non-tender, no distension. MS/ Extremity: Pulses equal, no cyanosis. Neurovascular intact. Full, normal range of motion. Neuro: Awake and alert, GCS 15, oriented to person, place, time, and situation. Motor strength 5/5 in all extremities. Sensory grossly intact. 13:22 Skin: bluish purple discoloration of right inferior elizondo and medial ankle with warm, 1+ pitting edema, and tenderness. 1cm wound draining mild amount of fluid. Vital Signs: 13:15 BP 167 / 90; Pulse 68; Resp 16; Temp 98.4; Pulse Ox 96% on R/A; Weight 90.72 kg; Height iw 4 ft. 8 in. ; 17:19 BP 147 / 86; Pulse 71; Resp 16 S; Pulse Ox 99% on R/A; as6 13:15 Body Mass Index 44.84 (90.72 kg, 142.24 cm) iw MDM: 13:11 Patient medically screened. sb4 13:22 Differential diagnosis: abscess, cellulitis, PVD. sb4 14:50 Data reviewed: vital signs, nurses notes, lab test result(s), radiologic studies, and sb4 as a result, I will discharge patient. Historians other than the Patient: Daughter/Son: daughter. Counseling: I had a detailed discussion with the patient and/or guardian regarding the historical points, exam findings, and any diagnostic results supporting the discharge/admit diagnosis, the presence of at least one elevated blood pressure reading (>120/80) during this emergency department visit, lab results, radiology results, the need for outpatient follow up, a general surgeon, to return to the emergency department if symptoms worsen or persist or if there are any questions or concerns that arise at home. 05/11 13:21 Order name: Blood Culture Adult (2) sb4 05/11 13:21 Order name: CBC with Diff; Complete Time: 14:29 sb4 05/11 13:21 Order name: CMP; Complete Time: 14:45 sb4 05/11 13:21 Order name: Lactate w/ 2H reflex if indic.; Complete Time: 14:43 sb4 05/11 13:21 Order name: Protime (+inr); Complete Time: 14:38 sb4 05/11 13:21 Order name: Ptt, Activated; Complete Time: 14:38 sb4 05/11 13:21 Order name: BNP; Complete Time: 14:45 sb4 05/11 13:22 Order name: Wound Culture sb4 05/11 13:21 Order name: Tib Fib Right XRAY; Complete Time: 14:38 sb4 05/11 13:21 Order name: Extremity Venous Uni Ltd US; Complete Time: 14:38 sb4 05/11 13:21 Order name: Chest Single View XRAY; Complete Time: 14:38 sb4 05/11 13:21 Order name: IV Saline Lock - Large Bore; Complete Time: 14:14 sb4 05/11 13:21 Order name: Labs collected and sent; Complete Time: 14:14 sb4 05/11 13:21 Order name: Vital Signs; Complete Time: 15:05 sb4 Administered Medications: 16:45 Drug: Clindamycin IVPB 900 mg IVPB once over 30 mins; (mix in 50 mL) Route: IVPB; aa5 Infused Over: 30 mins; Site: right antecubital; 17:17 Follow up: Response: No adverse reaction; IV Status: Completed infusion; IV Intake: 20ymcu3 Disposition Summary: 05/11/23 16:37 Discharge Ordered Notes: Location: Home sb4 Problem: new sb4 Symptoms: are unchanged sb4 Condition: Stable sb4 Diagnosis - Cellulitis of right lower limb sb4 Followup: sb4 - With: Anjum Oliver MD - When: 2 - 3 days - Reason: Wound Recheck Discharge Instructions: - Discharge Summary Sheet sb4 - Cellulitis, Adult sb4 Forms: - Medication Reconciliation Form sb4 - Thank You Letter sb4 - Antibiotic Education sb4 - Prescription Opioid Use sb4 - Patient Portal Instructions sb4 - Leadership Thank You Letter sb4 Prescriptions: - Bactrim DS 800-160 mg Oral Tablet - take 1 tablet ORAL route every 12 hours for 10 days; 20 tablet; Refills: 0, sb4 Product Selection Permitted Signatures: Dispatcher [employer] Marisol Marquez RN Katy Banuelos RN RN aa5 Dany Sutherland RN RN as6 Yoly Cornejo PA-C PA-C sb4
[2023-05-11 17:27] VITALS: BP 147/86; TEMP 98.4; O2SAT 99
== END ==
LOC: ER 12:52
DX: L03.115 Cellulitis of right lower limb (principal); Z88.8 Allergy status to other drugs, medicaments and biological substances
CPT/HCPCS: 36415; 71045; 80053; 83605; 83880; 85025; 85610; 85730; 87040; 87070; 87077; 87186; 87205; 93971; 96365; 99284

== ENCOUNTER 2023-08-04 12:46 | Inpatient (IN) | payer OTHER ==
[~2023-08-04 12:46] MED LIST changes: +AMLODIPINE 10 MG TAB PO SCH; -CLINDAMYCIN 900MG/D5W 900 MG/50 ML IVPB IV ONE
--- OUTSIDE RECORDS SUMMARY | 2023-08-04 12:49 | XMS REPORT | Continuity of Care Document ---
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 ON 9 [id number] 2023 00:00:00 Problems Condition Name Condition Details Condition Category Status Onset Date Resolution Date Last Treatment Date Treating Clinician Comments Source PVD (periphera l vascular disease) PVD (periphera l vascular disease) Disease Active 05-18 00:00: 00 Miranda Narayan - Externa l Primary hypertensi on Primary hypertensi on Disease Active 05-18 00:00: 00 Miranda Sechanceold - Externa l Mass of lower inner quadrant of left breast Mass of lower inner quadrant of left breast Disease Active 05-18 00:00: 00 Miranda Monsivaisold - Externa l Elevated glucose Elevated glucose Disease Active 05-18 00:00: 00 Miranda Sechanceold - Externa l 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) Disease Active 05-18 00:00: 00 Miranda Sechanceold - Externa l Skin ulcer (multi HCC) Skin ulcer (multi HCC) Disease Active 05-18 00:00: 00 Miranda Armstrong l Allergies, Adverse Reactions, Alerts Allergy Name Allergy Type Status Severity Reaction(s) Onset Date Inactive Date Treating Clinician Comments Source Bismuth Subsalic ylate Propensi ty to adverse reaction s Active Rash 05-18 00:00: 00 Miranda Dyera l Social History Social Habit Start Date Stop Date Quantity Comments Source Sexual orientation Kristin cm Sylvain - External History of Social function 2023-07-04 00:00:00 2023-07-04 00:00:00 Miranda Nraayan - External Alcoholic beverage intake 2023-07-04 00:00:00 2023-07-04 00:00:00 Lifetime non-drinker (finding) Miranda Narayan - External Alcohol intake 2023-06-04 00:00:00 2023-06-04 00:00:00 Lifetime non-drinker (finding) Miranda Narayan - External Sex assigned at 1960 00:00:00 1960 00:00:00 Miranda Narayan - External Smoking Status Start Date Stop Date Source Never smoked tobacco Miranda Narayan - External Medications Ordered Medication Name Filled Medication Name Start Date Stop Date Current Medication? Ordering Clinician Indication Dosage Frequency Signature (SIG) Comments Components Source AMLODIPINE BENZOATE OR 07-03 15:32: 31 07-03 00:00 :00 No [id number] 5mg Take 5 mg by mouth daily. Miranda toussaint CYCLOBENZAP RINE HCL OR 07-03 15:32: 31 07-03 00:00 :00 No 10mg QD Take 10 mg by mouth nightly as needed (musce spasm). Miranda toussaint Losartan Potassium (COZAAR) 100 MG oral Tablet 07-03 00:00: 00 Yes [id number] 100mg Take 1 tablet (100 mg total) by mouth daily. Miranda toussaint Spironolact one 25 MG oral Tablet 07-03 00:00: 00 Yes [id number] 25mg Take 1 tablet (25 mg total) by mouth daily. Miranda toussaint Spironolact one 25 MG oral Tablet 4-09 00:00: 00 07-03 00:00 :00 No [id number] 25mg Take 1 tablet by mouth once daily Miranda toussaint AMLODIPINE BENZOATE OR 3-11 15:17: 14 Yes [id number] 5mg Take 5 mg by mouth daily. Miranda toussaint CYCLOBENZAP RINE HCL OR 3-11 15:17: 14 Yes 10mg QD Take 10 mg by mouth nightly as needed (musce spasm). Miranda toussaint hydroCHLORO thiazide 12.5 MG oral Capsule 3-05 00:00: 00 Yes [id number] 12.5mg Take 1 capsule (12.5 mg total) by mouth daily. Miranda toussaint CYCLOBENZAP RINE HCL OR 2-23 16:44: 20 Yes 10mg QD Take 10 mg by mouth nightly as needed (musce spasm). Miranda toussaint AMLODIPINE BENZOATE OR 05-18 16:40: 15 Yes [id number] 5mg Take 5 mg by mouth daily. Miranda toussaint TRIMETHOPRI M-SULFAMETH OXAZOLE (BACTRIM DS) 800-160 MG oral Tablet 2-17 00:00: 00 07-03 00:00 :00 No [id number] 1{tbl} Take 1 tablet by mouth every 12 hours FOR 10 DAYS. Miranda toussaint Spironolact one 25 MG oral Tablet 2-12 00:00: 00 Yes [id number] 25mg Take 1 tablet (25 mg total) by mouth daily. Miranda toussaint Losartan Potassium (COZAAR) 100 MG oral Tablet 2-12 00:00: 00 07-03 00:00 :00 No [id number] 100mg Take 1 tablet (100 mg total) by mouth daily. Miranda toussaint Amoxicillin -Pot Clavulanate 875-125 MG oral Tablet 1-19 00:00: 00 Yes [id number] 1{tbl} Take 1 tablet by mouth every 12 hours FOR 10 DAYS. Miranda Narayan - Externa breana Vitamin D, Ergocalcife rol, 1.25 MG (26673 UT) oral Capsule 03-31 00:00: 00 Yes [id number] Take 1 capsule (50,000 units total) by mouth once a week. Miranda Monsivaisold - Externa l Vitamin D, Ergocalcife rol, 1.25 MG (25657 UT) oral Capsule 03-31 00:00: 00 Yes 1{capsu le} Take 1 capsule (50,000 units total) by mouth once a week. Miranda Narayan - Externa l Vital Signs Vital Name Observation Time Observation Value Comments S damarilaura Systolic blood pressure 2023-07-04 20:17:00 132 mm[Hg] Miranda Seybo ld - External Diastolic blood pressure 2023-07-04 20:17:00 78 mm[Hg] Miranda Seybo ld - External Heart rate 2023-07-04 20:17:00 68 /min Kelse y Seybold - External Body temperature 2023-07-04 20:17:00 36.67 Agnieszka Miranda Seybold - External Respiratory rate 2023-07-04 20:17:00 18 /min Miranda Seprashant - External Body height 2023-07-04 20:17:00 154.9 cm Sanjana meza Seybson - External Body weight 2023-07-04 20:17:00 97.07 kg Sanjana ey Seybold - External BMI 2023-07-04 20:17:00 40.43 kg/m2 Sanjana ey Seybold - External Oxygen saturation in Arterial blood by Pulse oximetry 2023-07-04 20:17:00 98 /min Miranda chanceo ld - External Systolic blood pressure 2023-06-04 20:11:00 144 mm[Hg] Miranda Seybo ld - External Diastolic blood pressure 2023-06-04 20:11:00 62 mm[Hg] Miranda Seybo ld - External Heart rate 2023-06-04 20:11:00 67 /min Kelse y Seybold - External Body temperature 2023-06-04 20:11:00 37.06 Agnieszka Miranda Seybold - External Respiratory rate 2023-06-04 20:11:00 16 /min Miranda Seybold - External Body height 2023-06-04 20:11:00 154.9 cm Sanjana ey Seybold - External Body weight 2023-06-04 20:11:00 96.163 kg Sanjana ey Seybold - External BMI 2023-06-04 20:11:00 40.06 kg/m2 Sanjana ey Seybold - External Systolic blood pressure 2023-05-18 22:11:00 132 mm[Hg] Miranda Seybo ld - External Diastolic blood pressure 2023-05-18 22:11:00 78 mm[Hg] Miranda Seybo ld - External Heart rate 2023-05-18 22:11:00 70 /min Shaanse y Seybold - External Body temperature 2023-05-18 22:11:00 37.11 Agnieszka Miranda Seybold - External Respiratory rate 2023-05-18 22:11:00 15 /min Miranda Seybold - External Body height 2023-05-18 22:11:00 154.9 cm Sanjana ey Seybold - External Body weight 2023-05-18 22:11:00 96.163 kg Sanjana ey Seybold - External BMI 2023-05-18 22:11:00 40.06 kg/m2 Sanjana ey Seybold - External Encounters Start Date/Time End Date/Time Encounter Type Admission Type Attending [facility] Care Department Encounter ID Source 2023-07-30 10:15:00 2023-07-30 10:15:00 Outpatient MIRANDA KEBEDE [id number] Miranda Narayan 2023-07-30 08:20:00 2023-07-30 08:20:00 Outpatient MIRANDA KEBEDE [id number] Miranda Narayan 2023-07-24 00:00:00 2023-07-24 00:00:00 Outpatient MIKHAIL SALDIVAR [id number] Miranda Narayan 2023-07-09 00:00:00 2023-07-09 00:00:00 Outpatient MIKHAIL SALDIVAR [id number] Miranda Narayan 2023-07-04 16:30:00 2023-07-04 16:30:00 Outpatient LABKei MIRANDA KEBEDE [id number] Miranda Seybson 2023-07-04 15:30:00 2023-07-04 15:30:00 Outpatient JANNA, MIKHAIL MIRANDA KEBEDE [id number] Miranda Seybold 2023-07-03 00:00:00 2023-07-03 00:00:00 Outpatient HUNDBreana, MIKHAIL MIRANDA KEBEDE [id number] Miranda Seybson 2023-06-29 11:15:00 2023-06-29 11:15:00 Outpatient MIRANDA KEBEDE [id number] Miranda Seybold 2023-06-29 09:20:00 2023-06-29 09:20:00 Outpatient MIRANDA KEBEDE [id number] Miranda Seybson 2023-06-11 15:30:00 2023-06-11 15:30:[address] MIRANDA KEBEDE [id number] Miranda Seybold 2023-06-07 00:00:00 2023-06-07 00:00:00 Outpatient HUNDL, MIKHAIL MIRANDA KEBEDE [id number] Miranda Seybold 2023-06-04 16:15:00 2023-06-04 16:15:00 Outpatient LAB90 MIRANDA KEBEDE [id number] Miranda Seybold 2023-06-04 15:30:00 2023-06-04 15:30:00 Outpatient HUNDBreana, MIKHAIL MIRANDA KEBEDE [id number] Miranda ybold 2023-06-04 00:00:00 2023-06-04 00:00:00 Outpatient HUNDL, MIKHAIL KEBEDE [id number] Miranda Seybold 2023-05-29 00:00:00 2023-05-29 00:00:00 Outpatient HUNDL, MIKHAIL KEBEDE [id number] Miranda Seybold 2023-05-29 00:00:00 2023-05-29 00:00:00 Outpatient HUNDL, MIKHAIL KEBEDE [id number] Miranda Seybold 2023-05-23 07:55:00 2023-05-23 07:55:00 Outpatient LAB90 MIRANDA KEBEDE [id number] Miranda Seybold 2023-05-22 00:00:00 2023-05-22 00:00:00 Outpatient MIKHAIL SALDIVAR MIRANDA [id number] Miranda [facility] 2023-05-18 16:30:00 2023-05-18 16:30:00 Outpatient MIKHAIL SALDIVARSEY [id number] Miranda [facility] 2023-05-18 16:30:00 2023-05-18 16:30:00 Outpatient MIKHAIL SALDIVAR MIRANDA [id number] Miranda [facility] 2023-05-18 00:00:00 2023-05-18 00:00:00 Outpatient MIKHAIL SALDIVAR MIRANDA MIRANDA [id number] [facility] Notes Date/Time Note Provider Source 2023-07-04 15:21:12 [id number] MhtQHeBLYOLonleFE [id number]1 T15:21:12 Chief ComplaintPatient presents withFollow-up4 week follow up for B/PPaDarion Petitectronically signed by Raine Fuentes LVN at 07/04/2023 3:21 PM [id number] [id number]:21:52Nurse [id number]. [id number] for patient [id number] NoteLNNARRATIVEFormatted C-CDA narrative textCOLORADO RIVER MEDICAL CENTERIMANIOhioHealth [facility] [facility] [id number] [id number]:21:521.2.840.915279.1.7 2.3.15|[id number]. [id number] [facility] 2023-06-04 15:18:22 /EK9/Rlv7yC1cojw29m0 iQGTxb6XhqfdKqrX7 UOTtys0gnEV1hqCHlpviIl2fM0+2023-06-04 T15:18:22 Chief ComplaintPatient [place] [id number] [id number]:19:11Nurse [id number]. [id number] for patient jtrw79544-7Lpgvv NoteLNNARRATIVEFormatted C-CDA narrative [facility]2727 [facility].[id number] [id number]:19:111.2.840.070012.1.7 2.3.15|1.2.840.678602.1.13.131.2.7.2. [id number] [facility] 2023-05-18 16:17:29 rYVtB1n1TIuWg4ybOY1+ fry7T7y10upyFebpD +Fae8mK+Cn/F3vegbww4IeWlwJO2379-79-09 T16:17:29 Chief ComplaintPatient presents withEstablish CareLast wellness over a year ago.Hospital F/UFollow up [facility] Sunday for discoloration in right [place] [id number] [id number]:19:39Nurse [id number].2. [id number] for patient [id number] NoteLNNARRATIVEFormatted C-CDA narrative textAsp[facility]aus[facility]2727 [facility].[id number]:19:391.2.840.990681.1.7 2.3.15|1.2.840.235990.1.13.131.2.7.2. [id number] [facility]"
--- NOTE | 2023-08-04 13:17 | RAD REPORT ---
EXAM DESCRIPTION: RAD - Chest Single View - 08/04/2023 1:10 pm CLINICAL HISTORY: CHEST PAIN Chest pain. COMPARISON: Chest Single View dated 05/11/2023; Chest Single View dated 04/13/2023; Chest Single View dated 07/31/2021; Chest Single View dated 04/08/2016 FINDINGS: Portable technique limits examination quality. The lungs are grossly clear. The heart is normal in size. No displaced fractures. IMPRESSION: No acute intrathoracic process suspected.
[2023-08-04 13:18] LABS: Absolute Eosinophils 0.1 K/uL (0-0.5); Absolute Lymphocytes (CBC) 1.4 K/uL (0.7-4.9); Absolute Monocytes 0.3 K/uL (0.1-1.3); Absolute Neutrophil 3.1 K/uL (1.8-8.0); Eosinophils % 2.2 % (0-4.4); Hematocrit 42.6 % (36.0-45.0); Hemoglobin 14.1 g/dL (12.0-15.0); Lymphocytes % 28.5 % (15.3-44.8); MCH 29.5 pg (27.0-35.0); MCHC 33.1 g/dL (32.0-36.0); MCV 88.9 fL (80-100); MPV 8.4 fL (7.6-11.3); Neutrophils % 62.3 % (41.7-73.7); Nucleated Red Blood Cells % 0.1 % (0-0); Platelets 200 thou/uL (152-406); RBC Red Blood Cell Count 4.79 M/uL (3.86-4.86); Red Cell Distribution Width 12.7 % (12.1-15.2)
--- NOTE | 2023-08-04 13:28 | RAD REPORT ---
EXAM DESCRIPTION: CT - Head Brain Wo Cont - 08/04/2023 1:18 pm CLINICAL HISTORY: HEADACHE Headache, drowsiness COMPARISON: Head Brain Wo Cont dated 10/06/2022; Head Brain Wo Cont dated 07/31/2021 TECHNIQUE: All CT scans are performed using dose optimization technique as appropriate and may inclu de automated exposure control or mA/KV adjustment according to patient size. FINDINGS: No intracranial hemorrhage, hydrocephalus or extra-axial fluid collection.No areas of brai n edema or evidence of midline shift. The paranasal sinuses and mastoids are clear. The calvarium is intact. IMPRESSION: No acute intracranial abnormality.
[2023-08-04 13:39] LABS: Albumin 3.7 g/dL (3.4-5.0); Anion Gap 8.4 mEq/L (5.0-15.0); Bilirubin Direct 0.2 mg/dL (0-0.2); Bilirubin Indirect, Calculated 0.8 mg/dL (0.2-0.8); Globulin 3.6 g/dL (2.3-3.5); Potassium 3.4 mEq/L (3.5-5.1); Protein, Total 7.3 g/dL (6.4-8.2); Troponin High Sensitivity 15.7 pg/mL (<58.9)
--- NOTE | 2023-08-04 15:45 | ER ---
Nurse's Notes [facility] Name: Mary Montero Age: 62 yrs Sex: Female : 1960 Arrival Date: 08/04/2023 Time: 12:46 Bed 7 Private MD: Diagnosis: NSTEMI Presentation: 08/03 13:01 Chief complaint: Patient states: CP, dizzy started while shopping at [employer] earlier today. ll1 Pain to neck area and L arm. Coronavirus screen: Client denies travel out of the [place] in the last 14 days. At this time, the client does not indicate any symptoms associated with coronavirus-19. Ebola Screen: Patient denies travel to an Ebola-affected area in the 21 days before illness onset. Initial Sepsis Screen: Does the patient meet any 2 criteria? No. Patient's initial sepsis screen is negative. Does the patient have a suspected source of infection? No. Patient's initial sepsis screen is negative. Risk Assessment: Do you want to hurt yourself or someone else? Patient reports no desire to harm self or others. Onset of symptoms was August 04, 2023. 13:01 Method Of Arrival: Ambulatory ll1 13:01 Acuity: SADI 3 ll1 Triage Assessment: 13:00 General: Appears uncomfortable, Behavior is calm, cooperative, appropriate for age. ll1 Pain: Complains of pain in chest Pain radiates to left arm. Cardiovascular: Reports chest pain, fatigue, palpitations. Respiratory: Reports shortness of breath. Historical: - Allergies: 12:51 Pepto-Bismol; ll1 - PMHx: 12:51 Hypertension; ll1 13:01 Hypercholesterolemia; ll1 - PSHx: 12:51 Cholecystectomy; section; ll1 - Immunization history:: Adult Immunizations up to date. - Infectious Disease History:: Denies. - Social history:: Smoking status: Patient denies any tobacco usage or history of. Screenin:[facility] Fall Risk Assessment (Adult) History of falling in the last 3 months, as6 including since admission No falls in past 3 months (0 pts) Confusion or Disorientation No (0 pts) Intoxicated or Sedated No (0 pts) Impaired Gait No (0 pts) Mobility Assist Device Used No (0 pt) Altered Elimination No (0 pt) Score/Fall Risk Level 0 - 2 = Low Risk Oriented to surroundings, Maintained a safe environment, Educated pt \T\ family on fall prevention, incl call for assistance when getting out of bed, Assessed \T\ reinforced patient's understanding of fall precautions. Abuse screen: Denies threats or abuse. Denies injuries from another. Nutritional screening: No deficits noted. Tuberculosis screening: No symptoms or risk factors identified. Assessment: 13:13 General: Appears in no apparent distress. comfortable, Behavior is calm, cooperative. as6 Pain: Complains of pain in chest Pain radiates to left arm. Neuro: Level of Consciousness is awake, alert, obeys commands, Oriented to person, place, time, situation. Cardiovascular: Reports chest pain, Capillary refill < 3 seconds Patient's skin is warm and dry. Rhythm is sinus rhythm. Respiratory: Airway is patent Trachea midline Respiratory effort is even, unlabored, Respiratory pattern is regular, symmetrical. GI: No deficits noted. No signs and/or symptoms were reported involving the gastrointestinal system. : No deficits noted. No signs and/or symptoms were reported regarding the genitourinary system. EENT: No deficits noted. No signs and/or symptoms were reported regarding the EENT system. Derm: Skin is intact, is healthy with good turgor. Musculoskeletal: Circulation, motion, and sensation intact. 14:11 General: updated pt and family on awaiting repeat EKG and labs. no complaints or as6 concerns at this time . 17:00 General: report faxed . as6 Vital Signs: 13:01 BP 193 / 100; Pulse 75; Resp 18; Temp 97.4; Pulse Ox 94% on R/A; Weight 93.44 kg; ll1 Height 5 ft. 0 in. ; 14:12 BP 105 / 84; Pulse 75; Resp 15 S; Pulse Ox 96% on R/A; as6 15:14 BP 185 / 96; Pulse 59; Resp 16 S; Pulse Ox 94% on R/A; as6 16:57 BP 165 / 73; Pulse 61; Resp 16 S; Pulse Ox 95% on R/A; as6 13:01 Body Mass Index 40.23 (93.44 kg, 152.4 cm) ll1 ED Course: 12:49 Patient arrived in ED. ts1 12:50 Gabriela Oleary FNP is PHCP. jh7 12:50 Sandy, Yaya, MD is Attending Physician. 7 12:51 Arm band placed on Patient placed in an exam room, on a stretcher. ll1 12:55 EKG completed in triage. Results shown to MD. ll1 12:56 Dany Sutherland, RN is Primary Nurse. as6 13:02 Triage completed. ll1 13:02 Bed in low position. Call light in reach. Side rails up X 1. Client placed on as6 continuous cardiac and pulse oximetry monitoring. NIBP monitoring applied. cafeteria monitor on. 13:04 EKG done, by ED staff, reviewed by Yaya Sandy MD. as6 13:11 XRAY Chest (1 view) In Process Unspecified. EDMS 13:13 LFT's Sent. as6 13:13 Basic Metabolic Panel Sent. as6 13:13 CBC with Diff Sent. as6 13:13 NT PRO-BNP Sent. as6 13:13 Troponin HS Sent. as6 13:13 Inserted saline lock: 20 gauge in right antecubital area, using aseptic technique. as6 Blood collected. 13:20 CT Head Brain wo Cont In Process Unspecified. EDMS 15:08 Troponin High Sensitivity Sent. as6 15:44 Freddy Guerrero MD is Hospitalizing Provider. ec2 15:58 Hospitalizing Provider role handed off by Freddy Guerrero MD ec2 15:58 Anuradha Young MD is Hospitalizing Provider. ec2 17:11 Provided Education on: need for admit. as6 17:11 No provider procedures requiring assistance completed. Patient admitted, IV remains in as6 place. Administered Medications: 15:52 Drug: Aspirin PO Chewable Tablet 324 mg PO once; 81 mg tablets x 4 Route: PO; as6 15:52 Drug: Enoxaparin Sub-Q 1 mg/kg Sub-Q once Route: Sub-Q; Site: right lower abdomen; as6 Medication: 13:01 VIS not applicable for this client. as6 Outcome: 15:44 Decision to Hospitalize by Provider. ec2 17:11 Condition: stable as6 17:11 Instructed on the need for admit, 17:33 Patient left the ED. hb Signatures: Dispatcher [employer] EDMS Alona Martinez RN RN Ean Quiros RN RN [facility] Dany Sutherland, RN RN as6 Gabriela Oleary, TEACHERS' AIDE TEACHERS' AIDE jh7 Janet Leal PAS PAS ts1 Yaya Sandy MD MD ec2
--- NOTE | 2023-08-04 15:45 | EDPHYS ---
Physician Documentation [facility] Name: Mary Montero Age: 62 yrs Sex: Female : 1960 Arrival Date: 08/04/2023 Time: 12:46 Bed 7 Private MD: ED Physician Yaya Sandy HPI: 08/03 13:06 This 62 yrs old Female presents to ER via Ambulatory with complaints of ec2 Shortness Of Breath, Chest Pain. 13:06 Patient arrives today for evaluation of chest pain. States that she was shopping at the [employer] and noted some chest discomfort. Patient reports some associated lightheadedness as if she were in a pass out. Patient reports no nausea or vomiting. Patient also reports some shortness of breath associated with this. Patient reports history of hypertension as well as hyperlipidemia.. 13:07 Patient also with complaints of headache as well as lightheadedness. . ec2 Historical: - Allergies: 12:51 Pepto-Bismol; ll1 - PMHx: 12:51 Hypertension; ll1 13:01 Hypercholesterolemia; ll1 - PSHx: 12:51 Cholecystectomy; section; ll1 - Immunization history:: Adult Immunizations up to date. - Infectious Disease History:: Denies. - Social history:: Smoking status: Patient denies any tobacco usage or history of. ROS: 13:06 Constitutional: as per hpi ec2 Exam: 13:06 Constitutional: GEN: NAD Head: atraumatic Eyes: EOMI Ears: External ears are ec2 normal. CV: regular rate LUNGS: no respiratory distress ABD: non-distended SKIN: no evidence of rashes MSK: no evidence of trauma NEURO: moves all extremities equally, cranial nerves II through XII intact, strength intact all 4 extremities., No pronator drift appreciated. Vital Signs: 13:01 BP 193 / 100; Pulse 75; Resp 18; Temp 97.4; Pulse Ox 94% on R/A; Weight 93.44 kg; ll1 Height 5 ft. 0 in. ; 14:12 BP 105 / 84; Pulse 75; Resp 15 S; Pulse Ox 96% on R/A; as6 15:14 BP 185 / 96; Pulse 59; Resp 16 S; Pulse Ox 94% on R/A; as6 16:57 BP 165 / 73; Pulse 61; Resp 16 S; Pulse Ox 95% on R/A; as6 13:01 Body Mass Index 40.23 (93.44 kg, 152.4 cm) ll1 MDM: 12:50 Patient medically screened. 7 13:06 Data reviewed: vital signs. ED course: Patient arrives today for evaluation of chest ec2 pain. Examination remarkable for well-appearing nontoxic dividual is otherwise in no acute distress with a reassuring examination and reassuring hemodynamics. Will obtain lab work, chest x-ray, CT scan of the head. EKG obtained, independently reviewed and interpreted by me, shows normal sinus rhythm, rate of 77, no acute ST segment elevations, intervals are nonconcerning. Patient reports chest pain at this time is resolved. 13:30 ED course: CBC is reassuring, chest x-ray independently reviewed and interpreted by me, ec2 shows no acute intrathoracic process. CT scan of the head shows no acute intracranial process.. 13:57 ED course: Metabolic profile shows hypokalemia with a potassium of 3.4, minimally ec2 elevated BNP at 146. LFTs are unremarkable, troponin within normal ranges, CBC reassuring. Will obtain repeat EKG and troponin at 2-hour lita . 15:10 ED course: Repeat EKG independently reviewed and interpreted by me, shows normal sinus ec2 rhythm, rate of 64, no acute ST segment elevations, intervals are nonconcerning.. 15:43 ED course: Repeat troponin elevated compared to initial, initial at 15.7, repeat at ec2 49.6. Will give the patient aspirin, Lovenox, admit for NSTEMI. Discussed case with hospitalist, pending admission. Patient updated on plan of care and agreeable. . 08/03 13:06 Order name: Basic Metabolic Panel; Complete Time: 13:57 ec2 08/03 13:06 Order name: CBC with Diff; Complete Time: 13:30 ec2 08/03 13:06 Order name: NT PRO-BNP; Complete Time: 13:57 ec2 08/03 13:06 Order name: Troponin HS; Complete Time: 13:57 ec2 08/03 13:06 Order name: LFT's; Complete Time: 13:57 ec2 08/03 15:03 Order name: Troponin High Sensitivity; Complete Time: 15:41 ec2 08/03 16:45 Order name: Thyroid Stimulating Hormone EDMS 08/03 16:45 Order name: Urinalysis w/ reflexes EDMS 08/03 16:45 Order name: CBC with Automated Diff EDMS 08/03 16:45 Order name: CBC with Automated Diff EDMS 08/03 16:45 Order name: CBC with Automated Diff EDMS 08/03 16:45 Order name: CBC with Automated Diff EDMS 08/03 16:45 Order name: Comprehensive Metabolic Panel EDMS 08/03 16:45 Order name: Comprehensive Metabolic Panel EDMS 08/03 16:45 Order name: Comprehensive Metabolic Panel EDMS 08/03 16:45 Order name: Comprehensive Metabolic Panel EDMS 08/03 16:45 Order name: Lipid Profile EDMS 08/03 16:45 Order name: Lipid Profile EDMS 08/03 16:45 Order name: Magnesium EDMS 08/03 16:45 Order name: Magnesium EDMS 08/03 16:45 Order name: Magnesium EDMS 08/03 16:45 Order name: Magnesium EDMS 08/03 16:45 Order name: Protime (+INR) EDMS 08/03 16:45 Order name: Protime (+INR) EDMS 08/03 16:45 Order name: PTT, Activated Partial Thromb EDMS 08/03 16:45 Order name: PTT, Activated Partial Thromb EDMS 08/03 16:45 Order name: Troponin High Sensitivity EDMS 08/03 16:45 Order name: Troponin High Sensitivity EDMS 08/03 16:45 Order name: Troponin High Sensitivity EDMS 08/03 13:06 Order name: XRAY Chest (1 view); Complete Time: 13:30 ec2 08/03 13:06 Order name: CT Head Brain wo Cont; Complete Time: 13:30 ec2 08/03 13:06 Order name: EKG; Complete Time: 13:06 ec2 08/03 16:45 Order name: CONS Physician Consult EDMS 08/03 13:06 Order name: Cardiac monitoring; Complete Time: 13:06 ec2 08/03 13:06 Order name: EKG - Nurse/Tech; Complete Time: 13:06 ec2 08/03 13:06 Order name: IV Saline Lock; Complete Time: 13:13 ec2 08/03 13:06 Order name: Labs collected and sent; Complete Time: 13:13 ec2 08/03 13:06 Order name: O2 Per Protocol; Complete Time: 13:06 ec2 08/03 13:06 Order name: O2 Sat Monitoring; Complete Time: 13:06 ec2 08/03 13:58 Order name: Misc. Order: repeat ekg/trop at 1515; Complete Time: 15:08 ec2 08/03 15:03 Order name: EKG - Nurse/Tech; Complete Time: 15:08 ec2 Administered Medications: 15:52 Drug: Aspirin PO Chewable Tablet 324 mg PO once; 81 mg tablets x 4 Route: PO; as6 15:52 Drug: Enoxaparin Sub-Q 1 mg/kg Sub-Q once Route: Sub-Q; Site: right lower abdomen; as6 Disposition Summary: 08/04/23 15:44 Hospitalization Ordered Notes: Hospitalization Status: Inpatient Admission ec2 Location: Telemetry/MedSurg (Inpatient) ec2 Condition: Stable ec2 Problem: new ec2 Symptoms: are unchanged ec2 Bed/Room Type: Standard ec2 Provider: Anuradha Young(08/04/23 15:58) ec2 Room Assignment: [facility](08/04/23 16:50) eb Diagnosis - NSTEMI ec2 Forms: - Medication Reconciliation Form ec2 - SBAR form ec2 - Leadership Thank You Letter ec2 Signatures: Dispatcher [employer] EDBonnie Gonzalez Lynsay RN RN ll1 Dany Sutherland RN RN as6 Gabriela Oleary FNP PROTECTION ANALYST 7 Yaya Sandy MD MD ec2 Corrections: (The following items were deleted from the chart) 13:08 13:06 Constitutional: GEN: NAD Head: atraumatic Eyes: EOMI Ears: External ears are ec2 normal. CV: regular rate LUNGS: no respiratory distress ABD: non-distended SKIN: no evidence of rashes MSK: no evidence of trauma NEURO: moves all extremities equally ec2 15:58 15:44 Freddy Guerrero ec2 ec2 16:50 15:44 ec2 eb
[2023-08-04] MEDS ORDERED: ASPIRIN 81 MG CHEWABLE TABLET ONE (15:48)
[2023-08-04] MEDS ORDERED: ENOXAPARIN 100 MG/ML SYR SQ ONE (15:48)
--- NOTE | 2023-08-04 16:22 | P.HP ---
Certification for Inpatient Patient admitted to: Inpatient With expected LOS: >2 Midnights <Kendra Cherry - Last Filed: 08/04/23 19:01> Patient History Date of Service: 08/04/23 History of Present Illness: Pt is a 62 yo male with past medical history of htn, hypokalemia, and HLD who presents with chest pain and palpitation. She had the chest pain 2 weeks ago and it went away. Pt had another episode of chest pain today while shopping. The left sided chest pain is sharp, radiates to the left shoulder and intermittent in nature with severity of 9/10. Nothing makes it better or worse. On admission, lab studies show wbc 4..1, k 3.4, Hgb 14.1, Cr 0.87, troponin 15.7 -> 49.6, and BNP 146. EKG shows NSR. At bedside, pt is in NSR. 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 - Family History Mother -: Heart disease, Hypertension - Social History Alcohol use: No CD- Drugs: No Caffeine use: Yes <Kendra Cherry - Last Filed: 08/04/23 19:01> Date of Service: 08/05/23 <Anuradha Young - Last Filed: 08/05/23 07:48> Allergies No Known Drug Allergies Allergy (Verified 04/08/16 16:43) Unknown Home Medications: Losartan Potassium 100 mg PO DAILY 08/04/23 Spironolactone [Aldactone] 25 mg PO DAILY 08/04/23 Physical Examination - Studies Laboratory Data (last 24 hrs) 08/04/23 08/04/23 13:11 13:11 WBC 4.90 Hgb 14.1 Hct 42.6 Plt Count 200 Sodium 143 Potassium 3.4 L BUN 13 Creatinine 0.87 Glucose 141 H Total Bilirubin 1.0 AST 12 L ALT 27 Alkaline Phosphatase 104 <Kendra Cherry - Last Filed: 08/04/23 19:01> - Studies Laboratory Data (last 24 hrs) 08/04/23 08/04/23 13:11 13:11 WBC 4.90 Hgb 14.1 Hct 42.6 Plt Count 200 Sodium 143 Potassium 3.4 L BUN 13 Creatinine 0.87 Glucose 141 H Total Bilirubin 1.0 AST 12 L ALT 27 Alkaline Phosphatase 104 <Anuradha Young - Last Filed: 08/05/23 07:48> Assessment and Plan - Plan NSTEMI: troponin is 15.7 - > 49.6. Will r/o ACS. Trend troponin Q6h. Continue BENJAMIN. Will f/u Echo. Htn: Will give lisinopril. Hold coreg due to bradycardia. Hypokalemia: K is 3.4. Will replete and monitor. Obesity: pt was advised to lose weight. DVT ppx: SCD Code: full - Advance Directives Does patient have a Living Will: No Does patient have a Durable POA for Healthcare: No <Kendra Cherry Russ - Last Filed: 08/04/23 19:01> Physician Review Additional Text: Pt seen and examined. I agree with the note by the MED ASST. Pt is a 62 yo male with past medical history of htn, hypokalemia, and HLD who presents with chest pain and palpitation. She had the chest pain 2 weeks ago and it went away. Pt had another episode of chest pain today while shopping. The left sided chest pain is sharp, radiates to the left shoulder and intermittent in nature with severity of 9/10. Nothing makes it better or worse. On admission, lab studies show wbc 4..1, k 3.4, Hgb 14.1, Cr 0.87, troponin 15.7 -> 49.6, and BNP 146. EKG shows NSR. At bedside, pt is in NSR. A/P: NSTEMI: troponin is 15.7 - > 49.6. Will r/o ACS. Trend troponin Q6h. Continue therapeutic lovenox and BENJAMIN. Will f/u Echo. Consulted cardiology for possible cardiac cath Htn: Will give amlodipine and lisinopril. Hold coreg due to bradycardia. Hypokalemia: K is 3.4. Will replete and monitor. Obesity: pt was advised to lose weight. DVT ppx: SCD Code: full <Anuradha Young - Last Filed: 08/05/23 07:48>
[2023-08-04] MEDS: INSULIN REGULAR (HUMAN) 100 UNIT/ML SQ SCH (16:30)
[2023-08-04] MEDS ORDERED: SODIUM CHLORIDE 0.9% 10ML INJ IV PRN (16:46)
[2023-08-04 18:16] VITALS: BMI 40.2
[2023-08-04] MEDS: POTASSIUM CL SA 10 MEQ TAB PO ONE (19:21)
[2023-08-04] MEDS: HYDRALAZINE HCL 20 MG/ML VIAL IV ONE (19:43)
[2023-08-04] MEDS: PANTOPRAZOLE 40 MG INJ IVP SCH (19:43)
--- NOTE | 2023-08-04 19:54 | P.CNS ---
Date of Consult: 08/04/23 Chief Complaint: chest pain History of Present Illness: leonardo with PMH of HTN, presented with chest pain, mid chest, pressure in nature that has been going on for months, associated with SOB, radiate to the back, no other cardiac symptoms. Allergies No Known Drug Allergies Allergy (Verified 04/08/16 16:43) Unknown Home Medications: Aspirin [Aspirin EC 81 MG] 81 mg PO DAILY #90 tablet. 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 - Family History Mother Medical History: Heart disease, Hypertension - Social History Smoking Status: Never smoker Alcohol use: No CD- Drugs: No Caffeine use: Yes Place of Residence: Home Review of Systems 10-point ROS is otherwise unremarkable Physical Examination Temp Pulse Resp BP Pulse Ox 97.1 F 56 16 187/81 H 95 08/04/23 18:00 08/04/23 18:00 08/04/23 18:00 08/04/23 18:00 08/04/23 18:00 General: Alert, Oriented x3 HEENT: Atraumatic Neck: Supple Respiratory: Clear to auscultation bilaterally Cardiovascular: No edema, Normal S1 S2 Gastrointestinal: Normal bowel sounds Laboratory Data (last 24 hrs) 08/04/23 08/04/23 13:11 13:11 WBC 4.90 Hgb 14.1 Hct 42.6 Plt Count 200 Sodium 143 Potassium 3.4 L BUN 13 Creatinine 0.87 Glucose 141 H Total Bilirubin 1.0 AST 12 L ALT 27 Alkaline Phosphatase 104 - Problems (1) SOB (shortness of breath) Current Visit: Yes Status: Acute Plan: can be secondary to heart failure vs hypertension get echo (2) Chest pain Onset Date: 04/10/16 Current Visit: No Status: Acute Plan: concern for angina, will do coronary angiogram sunday ASA 81 mg daily. Qualifiers: Chest pain type: unspecified Qualified Code(s): R07.9 - Chest pain, unspecified (3) Hypertension Onset Date: 04/10/16 Current Visit: No Status: Chronic Plan: BP is high, start patient on Norvasc 10 mg daily Continue Lisinopril 40 mg daily. Qualifiers: Hypertension type: essential hypertension Qualified Code(s): I10 - Essential (primary) hypertension
[2023-08-04] MEDS ORDERED: carvediloL 6.25 MG TAB PO SCH (21:00)
[2023-08-04] MEDS: SPIRONOLACTONE 25 MG TABLET PO SCH (21:11)
[2023-08-04] MEDS: ATORVASTATIN 40 MG TAB PO SCH (21:12)
[2023-08-04] MEDS: AMLODIPINE 10 MG TAB PO SCH (21:12)
[2023-08-05 03:26] LABS: Absolute Basophils 0.1 K/uL (0-0.5); Absolute Monocytes 0.3 K/uL (0.1-1.3); Basophils % 1.1 % (0-1.3); Eosinophils % 0.6 % (0-4.4); Hematocrit 40.6 % (36.0-45.0); Hemoglobin 13.5 g/dL (12.0-15.0); Lymphocytes % 19.1 % (15.3-44.8); MCH 29.6 pg (27.0-35.0); MCHC 33.4 g/dL (32.0-36.0); MCV 88.7 fL (80-100); MPV 8.3 fL (7.6-11.3); Monocytes % 5.9 % (3.3-12.3); Neutrophils % 73.3 % (41.7-73.7); Nucleated Red Blood Cells % 0.1 % (0-0); Platelets 186 thou/uL (152-406); RBC Red Blood Cell Count 4.57 M/uL (3.86-4.86); Red Cell Distribution Width 13.1 % (12.1-15.2)
[2023-08-05 03:31] LABS: PT Prothrombin Time 11.8 SECONDS (9.5-12.5); PTT, Activated Partial Thromb 38.1 SECONDS (24.3-36.9); Protime INR 1.07
[2023-08-05 03:49] LABS: ALT/SGPT 23 U/L (13-56); Albumin 3.5 g/dL (3.4-5.0); Alkaline Phosphatase 90 U/L (45-117); Anion Gap 3.1 mEq/L (5.0-15.0); BUN Blood Urea Nitrogen 19 mg/dL (7-18); Bicarbonate 28 mEq/L (21-32); Bilirubin Total 0.8 mg/dL (0.2-1.0); Globulin 3.4 g/dL (2.3-3.5); Glomerular Filtration Rate 98 ml/min (=/>90); Glucose Level 128 mg/dL (74-106); HDL Cholesterol 43 mg/dL (40-60); LDL Cholesterol, Calculated 99 mg/dL (<130); LDL Cholesterol,Calc NonReport 99; Magnesium 2.2 mg/dL (1.6-2.4); Potassium 4.1 mEq/L (3.5-5.1); Protein, Total 6.9 g/dL (6.4-8.2); Sodium Level 139 mEq/L (136-145)
[2023-08-05 04:00] LABS: AST/SGOT < 10 U/L (15-37)
[2023-08-05 04:04] LABS: Troponin High Sensitivity 69.5 pg/mL (<58.9)
[2023-08-05] MEDS ORDERED: NITROGLYCERIN 0.4 MG/TAB SL PRN (07:46)
[2023-08-05] MEDS: ENOXAPARIN 100 MG/ML SYR SQ SCH (08:52)
[2023-08-05] MEDS: ASPIRIN EC 81 MG TAB PO SCH (08:53)
[2023-08-05] MEDS: lisinopriL 20 MG TAB PO SCH (09:00)
[2023-08-05] MEDS ORDERED: HOME MED 1 EA UNK (Losartan Potassium [Losartan Potassium] 100 MG Tablet) PO SCH (09:00)
[2023-08-05] MEDS ORDERED: SPIRONOLACTONE 25 MG TABLET PO SCH (09:00)
--- NOTE | 2023-08-05 09:22 | P.PN ---
Subjective Date of Service: 08/05/23 Chief Complaint: chest pain Subjective: No new changes, Improving <Kendra Cherry - Last Filed: 08/05/23 09:20> Date of Service: 08/05/23 <Anuradha Young - Last Filed: 08/05/23 10:45> Review of Systems 10-point ROS is otherwise unremarkable General: As per HPI Respiratory: As per HPI Cardiovascular: As per HPI Gastrointestinal: As per HPI <Kendra Cherry - Last Filed: 08/05/23 09:20> Physical Examination - Vital Signs Temperature: 97.3 F Blood Pressure: 147/66 Pulse: 61 Respirations: 16 Pulse Ox (%): 92 - Physical Exam General: Alert, In no apparent distress, Oriented x3 HEENT: Atraumatic, Normocephalic Neck: Supple, 2+ carotid pulse no bruit Respiratory: Clear to auscultation bilaterally, Normal air movement Cardiovascular: No edema, Regular rate/rhythm, Normal S1 S2 Capillary refill: <2 Seconds Gastrointestinal: Soft and benign Musculoskeletal: No clubbing Integumentary: No rashes Neurological: Normal speech, Normal tone Lymphatics: No axilla or inguinal lymphadenopathy External genitalia: Deferred Rectal: Deferred - Studies Laboratory Data (last 24 hrs) 08/04/23 08/04/23 13:11 13:11 WBC 4.90 Hgb 14.1 Hct 42.6 Plt Count 200 Sodium 143 Potassium 3.4 L BUN 13 Creatinine 0.87 Glucose 141 H Total Bilirubin 1.0 AST 12 L ALT 27 Alkaline Phosphatase 104 <Kendra Cherry - Last Filed: 08/05/23 09:20> - Studies Laboratory Data (last 24 hrs) 08/04/23 08/04/23 13:11 13:11 WBC 4.90 Hgb 14.1 Hct 42.6 Plt Count 200 Sodium 143 Potassium 3.4 L BUN 13 Creatinine 0.87 Glucose 141 H Total Bilirubin 1.0 AST 12 L ALT 27 Alkaline Phosphatase 104 <Anuradha Young - Last Filed: 08/05/23 10:45> Assessment And Plan - Plan NSTEMI: troponin is 15.7 - > 49.6. Will r/o ACS. Trend troponin Q6h. Continue BENJAMIN. Will f/u Echo. Htn: Will give lisinopril. Hold coreg due to bradycardia. Started norvasc per Dr. Jean, Will take to labour market economist tomorrow. NPO post MN Hypokalemia: K is 3.4. Will replete and monitor. Obesity: pt was advised to lose weight. DVT ppx: SCD Code: full <Kendra Cherry - Last Filed: 08/05/23 09:20> - Plan Pt seen and examined. I agree with the note by the ROUGH RICE GRADER. Will continue lisinopril and amlodipine. cardiology will do cardiac cath tomorrow. Keep NPO after midnight. <Anuradha Young - Last Filed: 08/05/23 10:45>
--- NOTE | 2023-08-05 13:45 | P.PN ---
Subjective Date of Service: 08/05/23 Chief Complaint: chest pain Subjective: No new changes Review of Systems 10-point ROS is otherwise unremarkable Physical Examination - Vital Signs Temperature: 97.7 F Blood Pressure: 164/67 Pulse: 61 Respirations: 15 Pulse Ox (%): 95 - Physical Exam General: Alert, In no apparent distress HEENT: Atraumatic, PERRLA, EOMI Neck: Supple, JVD not distended Respiratory: Clear to auscultation bilaterally, Normal air movement Cardiovascular: Regular rate/rhythm, Normal S1 S2 Gastrointestinal: Normal bowel sounds, No tenderness Assessment And Plan - Current Problems (Diagnosis) (1) SOB (shortness of breath) Current Visit: Yes Status: Acute Plan: can be secondary to heart failure vs hypertension get echo (2) Chest pain Onset Date: 04/10/16 Current Visit: No Status: Acute Plan: concern for angina, will do coronary angiogram sunday ASA 81 mg daily. Qualifiers: Chest pain type: unspecified Qualified Code(s): R07.9 - Chest pain, unspecified (3) Hypertension Onset Date: 04/10/16 Current Visit: No Status: Chronic Plan: BP is high, on Norvasc 10 mg daily Continue Lisinopril 40 mg daily (please confirm in MAY if patient is taking it) Continue Aldactone 25 mg daily. Qualifiers: Hypertension type: essential hypertension Qualified Code(s): I10 - Essential (primary) hypertension
[2023-08-05] MEDS: LOSARTAN POTASSIUM 50 MG TABLET PO SCH (16:29)
[2023-08-06 06:52] LABS: Absolute Basophils 0.1 K/uL (0-0.5); Absolute Eosinophils 0.1 K/uL (0-0.5); Absolute Lymphocytes (CBC) 1.7 K/uL (0.7-4.9); Absolute Monocytes 0.3 K/uL (0.1-1.3); Absolute Neutrophil 3.7 K/uL (1.8-8.0); Basophils % 0.9 % (0-1.3); Eosinophils % 1.9 % (0-4.4); Hematocrit 43.5 % (36.0-45.0); Hemoglobin 14.8 g/dL (12.0-15.0); Lymphocytes % 29.5 % (15.3-44.8); MCH 30.1 pg (27.0-35.0); MCV 88.5 fL (80-100); MPV 8.1 fL (7.6-11.3); Monocytes % 5.4 % (3.3-12.3); Neutrophils % 62.3 % (41.7-73.7); Nucleated Red Blood Cells % 0.1 % (0-0); Platelets 238 thou/uL (152-406); RBC Red Blood Cell Count 4.92 M/uL (3.86-4.86); Red Cell Distribution Width 12.8 % (12.1-15.2)
[2023-08-06 07:08] LABS: Albumin 3.7 g/dL (3.4-5.0); Anion Gap 8.5 mEq/L (5.0-15.0); Bilirubin Total 1.3 mg/dL (0.2-1.0); Globulin 3.8 g/dL (2.3-3.5); Magnesium 2.2 mg/dL (1.6-2.4); Potassium 3.5 mEq/L (3.5-5.1); Protein, Total 7.5 g/dL (6.4-8.2)
[2023-08-06] MEDS: NA CHLORIDE 0.9% 500 ML ONE (07:26)
--- NOTE | 2023-08-06 07:32 | P.PN ---
Subjective Date of Service: 08/06/23 Chief Complaint: chest pain Admitted for chest pain, noted NSTEMI elevated troponin Echo ordered, cardiology following, Scheduled for left heart cath on Saturday 08/05 - Physical Exam General: Alert, In no apparent distress, Oriented x3 HEENT: Atraumatic, Normocephalic Neck: Supple, 2+ carotid pulse no bruit Respiratory: Clear to auscultation bilaterally, Normal air movement Cardiovascular: No edema, Regular rate/rhythm, Normal S1 S2 Capillary refill: <2 Seconds Gastrointestinal: Soft and benign Musculoskeletal: No clubbing Integumentary: No rashes Neurological: Normal speech, Normal tone Lymphatics: No axilla or inguinal lymphadenopathy Review of Systems Per HPI Physical Examination - Vital Signs Temperature: 97.3 F Blood Pressure: 160/78 Pulse: 59 Respirations: 16 Pulse Ox (%): 96 Assessment And Plan - Plan Assessment And Plan SOB (shortness of breath) Current Visit: Yes Status: Acute can be secondary to heart failure vs hypertension get echo Chest x-ray no acute intrathoracic process Scheduled for left heart cath NSTEMI Elevated Trop Chest pain Onset Date: 04/10/16 Current Visit: No Status: Acute Plan: concern for angina, will do coronary angiogram sunday ASA 81 mg daily. Hypertensive urgency Hypertension Onset Date: 04/10/16 Current Visit: No Status: Chronic BP is high, on Norvasc 10 mg daily, as neededantihypertensive Continue Lisinopril 40 mg daily (please confirm in MAY if patient is taking it) Continue Aldactone 25 mg daily. Discharge Plan: Home - Code Status/Comfort Care Code Status: Full Code Critical Care: No Time Spent Managing PTS Care (In Minutes): 35
[2023-08-06] MEDS ORDERED: HEPA 1000U/500MLS 2,000 UNIT/1,000 ML BAG IV ONE (08:12)
[2023-08-06] MEDS ORDERED: LIDOCAINE 1% 20 ML MDV ONE (08:12)
[2023-08-06] MEDS ORDERED: FENTANYL CITR 100 MCG/2 ML ONE (08:12)
[2023-08-06] MEDS ORDERED: HEPARIN 10,000 UNIT/10 ML VIAL IV ONE (08:13)
[2023-08-06] MEDS ORDERED: MIDAZOLAM HCL 2 MG/2 ML INJ ONE (08:13)
[2023-08-06] MEDS ORDERED: HEPARIN 5000 UNIT/ML 1 ML VIAL ONE (08:13)
[2023-08-06] MEDS ORDERED: ATROPINE SULF 1 MG/10 ML SYR IV ONE (08:20)
[2023-08-06] MEDS ORDERED: TICAGRELOR 90 MG TABLET PO ONE (08:20)
[2023-08-06] MEDS ORDERED: ASPIRIN 325 MG TAB ONE (08:20)
[2023-08-06] MEDS ORDERED: CLOPIDOGREL 75 MG TABLET ONE (08:20)
[2023-08-06] MEDS ORDERED: VERAPAMIL HCL 10 MG/4 ML VIAL IV ONE (08:20)
--- NOTE | 2023-08-06 10:02 | P.PN ---
Subjective Date of Service: 08/06/23 Chief Complaint: chest pain Subjective: No new changes Review of Systems 10-point ROS is otherwise unremarkable Physical Examination - Vital Signs Temperature: 97.3 F Blood Pressure: 160/78 Pulse: 59 Respirations: 16 Pulse Ox (%): 96 - Physical Exam General: Alert, In no apparent distress HEENT: Atraumatic, PERRLA, EOMI Neck: Supple, JVD not distended Respiratory: Clear to auscultation bilaterally, Normal air movement Cardiovascular: Regular rate/rhythm, Normal S1 S2 Gastrointestinal: Normal bowel sounds, No tenderness Assessment And Plan - Current Problems (Diagnosis) (1) SOB (shortness of breath) Current Visit: Yes Status: Acute Plan: can be secondary to heart failure vs hypertension get echo (2) Chest pain Onset Date: 04/10/16 Current Visit: No Status: Acute Plan: Patient coronary angiogram today was normal, advised family to follow up with PCP for other reasons for chest pain ASA 81 mg daily. Qualifiers: Chest pain type: unspecified Qualified Code(s): R07.9 - Chest pain, unspecified (3) Hypertension Onset Date: 04/10/16 Current Visit: No Status: Chronic Plan: BP is high, on Norvasc 10 mg daily Continue Losartan 100 mg daily Continue Aldactone 25 mg daily. follow up in clinic with BP log to better adjust medications Qualifiers: Hypertension type: essential hypertension Qualified Code(s): I10 - Essential (primary) hypertension
--- NOTE | 2023-08-06 10:06 | P.DS ---
Admission Date: 08/04/23 Discharge Date: 08/07/23 Disposition: ROUTINE DISCHARGE Discharge Condition: GOOD Reason for Admission: chest pain Brief History of Present Illness: History of Present Illness: 62 yo with past medical history of htn, hypokalemia, and HLD who presents with chest pain and palpitation. She had the chest pain 2 weeks ago and it went away. Pt had another episode of chest pain today while shopping. The left sided chest pain is sharp, radiates to the left shoulder and intermittent in nature with severity of 9/10. Nothing makes it better or worse. On admission, lab studies show wbc 4..1, k 3.4, Hgb 14.1, Cr 0.87, troponin 15.7 -> 49.6, and BNP 146. EKG shows NSR. At bedside, pt is in NSR. - Physical Exam General: Alert, In no apparent distress, Oriented x3 HEENT: Atraumatic, Normocephalic Neck: Supple, 2+ carotid pulse no bruit Respiratory: Clear to auscultation bilaterally, Normal air movement Cardiovascular: No edema, Regular rate/rhythm, Normal S1 S2 Capillary refill: <2 Seconds Gastrointestinal: Soft and benign Musculoskeletal: No clubbing Integumentary: No rashes Neurological: Normal speech, Normal tone Lymphatics: No axilla or inguinal lymphadenopathy Hospital Course: 62 yo with past medical history of htn, hypokalemia, and HLD who presents with chest pain and palpitation. Was noted to have uncontrolled hypertension, mildly elevated troponin. was evaluated by cardiology. Heart cath 08/05 Dr Jean normal. Condition improved with resume home blood pressure medication Patient tolerating diet, stable for discharge to home with follow-up appointment with primary care physician. Follow-up with cardiology after discharge. PROBLEM: Chest pain with palpitation-negative heart cath Hypokalemia electrolytes replaced per protocol Mildly elevated troponin Heart cath 08/05 Dr Jean normal. Normal coronaries. 2. Normal filling pressures. The plan will be to continue medical management Obesity Hypertension Bradycardia hold Coreg due to bradycardia Resume amlodipine, lisinopril, Lipitor (hold Coreg due to bradycardia) Resume blood pressure medication Keep blood pressure log, follow-up with blood pressure log to cardiology appointment Follow-up with cardiology after discharge to adjust blood pressure medication Continue home medicines as previously prescribed GOAL: Clear understanding of disease process INSTRUCTIONS: Physician Discharge Instructions: -Follow-up with PCP in 1 to 2 weeks -Please call Dr. Oliveira at [phone] if any questions regarding hospital stay -Please call nursing station at [phone] if any nursing or medication questions -Return to the emergency room if symptoms worsen Diet: ADA, low sodium Activity: Fall precautions Vital Signs/Physical Exam: Temp Pulse Resp BP Pulse Ox 97.3 F 59 16 160/78 H 96 08/06/23 10:02 08/06/23 10:02 08/06/23 10:02 08/06/23 10:02 08/06/23 10:02 Laboratory Data at Discharge: WBC 5.90 thou/uL (4.3-10.9) 08/06/23 06:21 Hgb 14.8 g/dL (12.0-15.0) D 08/06/23 06:21 Hct 43.5 % (36.0-45.0) 08/06/23 06:21 Plt Count 238 thou/uL (152-406) D 08/06/23 06:21 PT 11.8 SECONDS (9.5-12.5) 08/05/23 02:38 INR 1.07 08/05/23 02:38 APTT 38.1 SECONDS (24.3-36.9) H 08/05/23 02:38 Sodium 139 mEq/L (136-145) 08/06/23 06:21 Potassium 3.5 mEq/L (3.5-5.1) D 08/06/23 06:21 BUN 15 mg/dL (7-18) 08/06/23 06:21 Creatinine 0.82 mg/dL (0.55-1.02) 08/06/23 06:21 Glucose 112 mg/dL (74-106) H 08/06/23 06:21 Magnesium 2.2 mg/dL (1.6-2.4) 08/06/23 06:21 Total Bilirubin 1.3 mg/dL (0.2-1.0) H 08/06/23 06:21 AST 11 U/L (15-37) L 08/06/23 06:21 ALT 25 U/L (13-56) 08/06/23 06:21 Alkaline Phosphatase 96 U/L (45-117) 08/06/23 06:21 Triglycerides 73 mg/dL (<150) 08/05/23 02:38 Cholesterol 157 mg/dL (<200) 08/05/23 02:38 HDL Cholesterol 43 mg/dL (40-60) 08/05/23 02:38 Cholesterol/HDL Ratio 3.65 08/05/23 02:38 Home Medications: Losartan Potassium 100 mg PO DAILY 08/04/23 Spironolactone [Aldactone*] 25 mg PO DAILY 08/04/23 Amlodipine [Norvasc*] 10 mg PO DAILY #30 tab 08/06/23 Atorvastatin Calcium [Lipitor] 40 mg PO BEDTIME #30 tab 08/06/23 New Medications: Atorvastatin Calcium [Lipitor] 40 mg PO BEDTIME #30 tab Amlodipine [Norvasc*] 10 mg PO DAILY #30 tab Physician Discharge Instructions: 62 year old female with a past medical history of hypertension presented with shortness of breath. Was evaluated by cardiology, status post left heart cath Dr Jean, heart cath was normal, patient is tolerating diet, can follow- up with primary care in 1 to 2-week, follow-up with cardiology after discharge Assessment And Plan SOB (shortness of breath- Chest x-ray no acute intrathoracic process Scheduled for left heart cath -was normal, follow-up with cardiology after just discharge Chest pain -serial troponins and concern for angina, will do coronary angiogram sunday heart cath was Resume home meds after discharge, ASA 81 mg daily, Norvasc 10 mg daily, Continue Aldactone 25 mg daily. Cozaar 100 mg Follow-up with cardiology after discharge CT of the head IMPRESSION: No acute intracranial abnormality Continue home medicines as previously prescribed GOAL: Clear understanding of disease process INSTRUCTIONS: Physician Discharge Instructions: -Follow-up with PCP in 1 to 2 weeks -Please call Dr. Oliveira at [phone] if any questions regarding hospital stay -Please call nursing station at [phone] if any nursing or medication questions -Return to the emergency room if symptoms worsen Diet: Low sodium Activity: Fall precautions Followup: NONE,NONE [Primary Care Provider] - Time spent managing pt's care (in minutes): 55
[2023-08-06 12:15] VITALS: BP 161/75; TEMP 97.2
[2023-08-06 12:16] VITALS: O2SAT 95
--- NOTE | 2023-08-06 12:51 | OP ---
Date of Procedure: 08/06/2023 Surgeon: Dany Jean Procedures Performed: 1.Selective coronary angiogram. 2.Left heart catheterization. Indication For Procedure: Unstable angina. Complications: None. Estimated Blood Loss: Less than 50 cc. Sedation Time: 20 minutes with 1 of Versed and 50 of fentanyl. Access: Right radial, closed by TR band. Description Of Procedure: After risks, benefits, and alternatives were explained to the patient, the patient agreed to proceed with the procedure and signed informed consent. The patient was brought b [facility] to the analytical lab analyst, prepped and draped in sterile fashion. Time-out was performed. Sedation was ad ministered. Right radial access was obtained using ultrasound-guided micropuncture technique. [place] 4 catheter was advanced over J-wire to the LV cavity. LVEDP was obtained. Pullback did not show an y gradient. Same catheter was used for selective angiogram of the left and right coronary systems. Catheter was removed over a J-wire at the end of the procedures and sheath was removed. TR band appl ied. The patient was moved back to recovery in stable condition. Findings: 1.Left main is normal. 2.LAD normal. 3.Left circ normal. 4.RCA normal. 5.LVEDP is 12 mmHg. Assessment And Plan: 1.Normal coronaries. 2.Normal filling pressures. The plan will be to continue medical management. ROBYN Voice ID: [id number] Report ID: [id number]
--- NOTE | 2023-08-06 13:22 | EKG ---
Test Date: 2023-08-04 Test Time: 12:56:40 Safety Leader: LML MEASUREMENT RESULTS: Intervals: Rate: 77 MN: 160 QRSD: 78 QT: 400 QTc: 452 Pelzer: P: 50 MN: 160 QRS: 13 T: 77 INTERPRETIVE STATEMENTS: Normal sinus rhythm Normal ECG Compared to ECG 04/13/2023 11:40:36 No significant changes Electronically Signed On 08-06-23 13:17:57 CDT by Jono Read
--- NOTE | 2023-08-06 13:22 | EKG ---
Test Date: 2023-08-04 Test Time: 15:09:21 Whip Operator: EMMANUEL MEASUREMENT RESULTS: Intervals: Rate: 64 MI: 152 QRSD: 80 QT: 432 QTc: 445 Counselor: P: 32 MI: 152 QRS: 16 T: 84 INTERPRETIVE STATEMENTS: Normal sinus rhythm Normal ECG Compared to ECG 08/04/2023 12:56:40 No significant changes Electronically Signed On 08-06-23 13:17:53 CDT by Jono Read
--- NOTE | 2023-08-07 11:02 | EKG ---
Test Date: 2023-08-04 Test Time: 19:55:02 Exhibit Display Representative: JOHN MEASUREMENT RESULTS: Intervals: Rate: 67 MT: 160 QRSD: 88 QT: 422 QTc: 445 [place]: P: 59 MT: 160 QRS: 36 T: 92 INTERPRETIVE STATEMENTS: Normal sinus rhythm Nonspecific T wave abnormality Abnormal ECG Compared to ECG 08/04/2023 15:09:21 T-wave abnormality now present Electronically Signed On 08-07-23 11:00:05 CDT by Dany Jean
== END 2023-08-06 12:25 | disposition home or self-care (01) | DRG 281 ==
LOC: ER 12:46 → ERHOLD 16:22 → 2ND 17:20
PROVIDERS: ADMIT Hospitalist; ATTEND Hospitalist
PROC: 4A023N7 Measurement of Cardiac Sampling and Pressure, Left Heart, Percutaneous Approach (ICD-10-PCS; principal; 2023-08-06)
PROC: B2111ZZ Fluoroscopy of Multiple Coronary Arteries using Low Osmolar Contrast (ICD-10-PCS; 2023-08-06)
DX: I21.4 Non-ST elevation (NSTEMI) myocardial infarction (principal); Z68.41 Body mass index [BMI] 40.0-44.9, adult; E66.9 Obesity, unspecified; E87.6 Hypokalemia; E78.5 Hyperlipidemia, unspecified; I20.9 Angina pectoris, unspecified; I10 Essential (primary) hypertension; E78.00 Pure hypercholesterolemia, unspecified; Z90.49 Acquired absence of other specified parts of digestive tract
CPT/HCPCS: 36415; 70450; 71045; 76937; 80048; 80053; 80061; 80076; 82947; 83735; 83880; 84443; 84484; 85025; 85610; 85730; 93005; 93458; 96372; 99152; 99285; C1893; C9113; J0360; J0461; J1644; J1650; J2001; J2250; J3010; J7040; Q9966

== ENCOUNTER 2023-09-30 07:51 | Emergency (ER) | payer OTHER ==
--- OUTSIDE RECORDS SUMMARY | 2023-09-30 07:54 | XMS REPORT | Continuity of Care Document ---
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 94 ON 9 [id number] 2023 00:00:00 Problems Condition Name Condition Details Condition Category Status Onset Date Resolution Date Last Treatment Date Treating Clinician Comments Source Well adult exam Well adult exam Disease Active 09-10 00:00: 00 Miranda Dyera breana History of colon polyps History of colon polyps Disease Active 09-10 00:00: 00 Miranda Brandt Externa breana Morbid obesity Morbid obesity Disease Active 09-10 00:00: 00 Miranda Brandt Externa breana Moderate episode of recurrent major depressive disorder Moderate episode of recurrent major depressive disorder Disease Active 09-10 00:00: 00 Miranda Narayan - Externa breana Hospital discharge follow-up Hospital discharge follow-up Disease Active 08-13 00:00: 00 Miranda Brandt Externa breana History of heart attack History of heart attack Disease Active 08-13 00:00: 00 Miranda Seybold - Externa l PVD (periphera l vascular disease) PVD (periphera l vascular disease) Disease Active 05-18 00:00: 00 Miranda Narayan - Gomeza breana Primary hypertensi on Primary hypertensi on Disease Active 05-18 00:00: 00 Miranda Narayan - Externa l Mass of lower inner quadrant of left breast Mass of lower inner quadrant of left breast Disease Active 05-18 00:00: 00 Miranda Dyera l Elevated glucose Elevated glucose Disease Active 05-18 00:00: 00 Miranda Narayan - Externa l 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) Disease Active 05-18 00:00: 00 Miranda Narayan - Externa l Skin ulcer (multi HCC) Skin ulcer (multi HCC) Disease Active 05-18 00:00: 00 Miranda Dyera breana Allergies, Adverse Reactions, Alerts Allergy Name Allergy Type Status Severity Reaction(s) Onset Date Inactive Date Treating Clinician Comments Source Bismuth Subsalic ylate Propensi ty to adverse reaction s Active Rash 05-18 00:00: 00 Miranda Dyera breana Social History Social Habit Start Date Stop Date Quantity Comments Source Sexual orientation Kristin cm Sylvain - External History of Social function 2023-09-11 00:00:00 2023-09-11 00:00:00 Miranda Narayan - External Alcoholic beverage intake 2023-09-11 00:00:00 2023-09-11 00:00:00 Lifetime non-drinker (finding) Miranda Narayan - External Alcohol intake 2023-06-04 00:00:00 2023-06-04 00:00:00 Lifetime non-drinker (finding) Miranda Narayan - External Sex assigned at 1960 00:00:00 1960 00:00:00 Miradna Narayan - External Smoking Status Start Date Stop Date Source Never smoked tobacco Miranda Narayan - External Medications Ordered Medication Name Filled Medication Name Start Date Stop Date Current Medication? Ordering Clinician Indication Dosage Frequency Signature (SIG) Comments Components Source Aspirin 81 MG oral Tablet Delayed Response 09-10 16:11: 55 Yes 99 81mg Take 1 tablet (81 mg total) by mouth daily. Indication s: Acute Heart Attack Miranda toussaint Amlodipine Besylate 10 MG oral Tablet 09-10 00:00: 00 Yes [id number] 10mg Take 1 tablet (10 mg total) by mouth daily. Miranda toussaint Atorvastati n Calcium 40 MG oral Tablet 09-10 00:00: 00 Yes [id number] 40mg Take 1 tablet (40 mg total) by mouth at bedtime. Miranda toussaint Aspirin 81 MG oral Tablet Delayed Response 08-13 17:03: 54 Yes 99 81mg Take 1 tablet (81 mg total) by mouth daily. Indication s: Acute Heart Attack Miranda toussaint Amlodipine Besylate 10 MG oral Tablet 08-06 00:00: 00 09-10 00:00 :00 No 10mg Take 1 tablet (10 mg total) by mouth daily. Miranda toussaint Atorvastati n Calcium 40 MG oral Tablet 08-06 00:00: 00 09-10 00:00 :00 No 40mg Take 1 tablet (40 mg total) by mouth at bedtime. Miranda toussaint AMLODIPINE BENZOATE OR 07-03 15:32: 31 07-03 00:00 :00 No [id number] 5mg Take 5 mg by mouth daily. Miranda toussaint CYCLOBENZAP RINE HCL OR 07-03 15:32: 31 07-03 00:00 :00 No 10mg QD Take 10 mg by mouth nightly as needed (musce spasm). Miranda toussaint Losartan Potassium (COZAAR) 100 MG oral Tablet 07-03 00:00: 00 Yes [id number] 100mg Take 1 tablet (100 mg total) by mouth daily. Miranda toussaint Spironolact one 25 MG oral Tablet 07-03 00:00: 00 Yes [id number] 25mg Take 1 tablet (25 mg total) by mouth daily. Miranda toussaint Spironolact one 25 MG oral Tablet 4-09 00:00: 00 07-03 00:00 :00 No [id number] 25mg Take 1 tablet by mouth once daily Miranda toussaint AMLODIPINE BENZOATE OR 3-11 15:17: 14 Yes [id number] 5mg Take 5 mg by mouth daily. Miranda toussaint CYCLOBENZAP RINE HCL OR 3-11 15:17: 14 Yes 10mg QD Take 10 mg by mouth nightly as needed (musce spasm). Miranda toussaint hydroCHLORO thiazide 12.5 MG oral Capsule 3-05 00:00: 00 Yes [id number] 12.5mg Take 1 capsule (12.5 mg total) by mouth daily. Miranda toussaint CYCLOBENZAP RINE HCL OR 2-23 16:44: 20 Yes 10mg QD Take 10 mg by mouth nightly as needed (musce spasm). Miranda toussaint AMLODIPINE BENZOATE OR 223 16:40: 15 Yes [id number] 5mg Take 5 mg by mouth daily. Miranda toussaint TRIMETHOPRI M-SULFAMETH OXAZOLE (BACTRIM DS) 800-160 MG oral Tablet 2-17 00:00: 00 07-03 00:00 :00 No [id number] 1{tbl} Take 1 tablet by mouth every 12 hours FOR 10 DAYS. Miranda toussaint Spironolact one 25 MG oral Tablet 2-12 00:00: 00 Yes [id number] 25mg Take 1 tablet (25 mg total) by mouth daily. Miranda toussaint Losartan Potassium (COZAAR) 100 MG oral Tablet 2-12 00:00: 00 07-03 00:00 :00 No [id number] 100mg Take 1 tablet (100 mg total) by mouth daily. Miranda toussaint Amoxicillin -Pot Clavulanate 875-125 MG oral Tablet 04-13 00:00: 00 Yes [id number] 1{tbl} Take 1 tablet by mouth every 12 hours FOR 10 DAYS. Miranda toussaint Vitamin D, Ergocalcife rol, 1.25 MG (99545 UT) oral Capsule 03-31 00:00: 00 Yes [id number] Take 1 capsule (50,000 units total) by mouth once a week. Miranda toussaint Vitamin D, Ergocalcife rol, 1.25 MG (17001 UT) oral Capsule 03-31 00:00: 00 Yes 1{capsu le} Take 1 capsule (50,000 units total) by mouth once a week. Miranda toussaint Vital Signs Vital Name Observation Time Observation Value Comments S ource Systolic blood pressure 2023-09-11 21:04:00 150 mm[Hg] Miranda Bettsybo ld - External Diastolic blood pressure 2023-09-11 21:04:00 82 mm[Hg] Miranda Monsivaiso ld - External Heart rate 2023-09-11 21:04:00 54 /min Raya Narayan - External Body temperature 2023-09-11 21:04:00 36.44 Agnieszka Miranda Naraayn - External Respiratory rate 2023-09-11 21:04:00 18 /min Miranda Narayan - External Body height 2023-09-11 21:04:00 154.9 cm Sanjana ey ybson - External Body weight 2023-09-11 21:04:00 98.884 kg Sanjana meza ybold - External BMI 2023-09-11 21:04:00 41.19 kg/m2 Sanjana meza ybold - External Oxygen saturation in Arterial blood by Pulse oximetry 2023-09-11 21:04:00 97 /min Miranda Monsivaiso ld - External Oxygen saturation in Arterial blood by Pulse oximetry 2023-08-14 21:03:00 97 /min Miranda Monsivaiso ld - External Systolic blood pressure 2023-08-14 21:03:00 118 mm[Hg] Miranda Monsivaiso ld - External Diastolic blood pressure 2023-08-14 21:03:00 78 mm[Hg] Miranda Bettsybo ld - External Heart rate 2023-08-14 21:03:00 60 /min Kelse y Seybold - External Body temperature 2023-08-14 21:03:00 36.67 Agnieszka Miranda Seybold - External Respiratory rate 2023-08-14 21:03:00 18 /min Miranda Seybold - External Body height 2023-08-14 21:03:00 154.9 cm Sanjana ey Seybold - External Body weight 2023-08-14 21:03:00 96.163 kg Sanjana ey Seybold - External BMI 2023-08-14 21:03:00 40.06 kg/m2 Sanjana ey Seybold - External Systolic blood pressure 2023-07-04 20:17:00 132 mm[Hg] Miranda Seybo ld - External Diastolic blood pressure 2023-07-04 20:17:00 78 mm[Hg] Miranda Seybo ld - External Heart rate 2023-07-04 20:17:00 68 /min Kelse y Seybold - External Body temperature 2023-07-04 20:17:00 36.67 Agnieszka Miranda Seybold - External Respiratory rate 2023-07-04 20:17:00 18 /min Miranda Seybold - External Body height 2023-07-04 20:17:00 154.9 cm Sanjana ey Seybold - External Body weight 2023-07-04 20:17:00 97.07 kg Sanjana ey Seybold - External BMI 2023-07-04 20:17:00 40.43 kg/m2 Sanjana ey Seybold - External Oxygen saturation in Arterial blood by Pulse oximetry 2023-07-04 20:17:00 98 /min Miranda Seybo ld - External Systolic blood pressure 2023-06-04 [...] External Heart rate 2023-05-18 22:11:00 70 /min Kelse y Seybold - External Body temperature 2023-05-18 [...] End Date/Time Encounter Type Admission Type Attending [facility] Care Department Encounter ID Source 2023-10-09 15:30:00 2023-10-09 15:30:00 Outpatient ROWENA ARREGUIN [id number] [facility] 2023-09-18 16:00:00 2023-09-18 16:00:[address] [facility] [id number] Miranda Seybson 2023-09-11 17:15:00 2023-09-11 17:15:00 Outpatient MOY KEBEDE [id number] Miranda Seybold 2023-09-11 16:30:00 2023-09-11 16:30:00 Outpatient ROWENA ARREGUIN [id number] Miranda Seybson 2023-08-23 00:00:00 2023-08-23 00:00:00 Outpatient MIKHAIL SALDIVAR [id number] Miranda Seybold 2023-08-14 16:30:00 2023-08-14 16:30:00 Outpatient ROWENA ARREGUIN MIRANDA KEBEDE [id number] Miranda Seybold 2023-07-30 10:15:00 2023-07-30 10:15:00 Outpatient MIRANDA KEBEDE [id number] Miranda Seybold 2023-07-30 08:20:00 2023-07-30 08:20:00 Outpatient MIRANDA KEBEDE [id number] Miranda Seybold 2023-07-24 00:00:00 2023-07-24 00:00:00 Outpatient JANNA MIKHAIL MIRANDA KEBEDE [id number] Miranda Seybold 2023-07-09 00:00:00 2023-07-09 00:00:00 Outpatient RENEBreana MIKHAIL KEBEDE [id number] Miranda Seybold 2023-07-04 16:30:00 2023-07-04 16:30:00 Outpatient LABKei KEBEDE [id number] Miranda Seybold 2023-07-04 15:30:00 2023-07-04 15:30:00 Outpatient JANNA MIKHAIL MIRANDA KEBEDE [id number] Miranda Seybold 2023-07-03 00:00:00 2023-07-03 00:00:00 Outpatient JANNA MIKHAIL MIRANDA KEBEDE [id number] Miranda Seybold 2023-06-29 11:15:00 2023-06-29 11:15:00 Outpatient MIRANDA KEBEDE [id number] Miranda Seybold 2023-06-29 09:20:00 2023-06-29 09:20:00 Outpatient MIRANDA KEBEDE [id number] Miranda Seybold 2023-06-11 15:30:00 2023-06-11 15:30:[address] KEBEDE [id number] Miranda Seybold 2023-06-07 00:00:00 2023-06-07 00:00:00 Outpatient JANNA MIKHAIL KEBEDE [id number] Miranda Seybold 2023-06-04 16:15:00 2023-06-04 16:15:00 Outpatient LAB90 MIRANDA KEBEDE [id number] Miranda Narayan 2023-06-04 15:30:00 2023-06-04 15:30:00 Outpatient MIKHAIL SALDIVAR [id number] Miranda Narayan 2023-06-04 00:00:00 2023-06-04 00:00:00 Outpatient MIKHAIL SALDIVAR [id number] Miranda Narayan 2023-05-29 00:00:00 2023-05-29 00:00:00 Outpatient MIKHAIL SALDIVAR [id number] Miranda Narayan 2023-05-29 00:00:00 2023-05-29 00:00:00 Outpatient MIKHAIL SALDIVAR [id number] Miranda Narayan 2023-05-23 07:55:00 2023-05-23 07:55:00 Outpatient MOY KEBEDE [id number] Miranda Narayan 2023-05-22 00:00:00 2023-05-22 00:00:00 Outpatient MIKHAIL SALDIVAR MIRANDA [id number] Miranda Narayan 2023-05-18 16:30:00 2023-05-18 16:30:00 Outpatient MIKHAIL SALDIVAR MIRANDA [id number] Miranda Narayan 2023-05-18 16:30:00 2023-05-18 16:30:00 Outpatient MIKHAIL SALDIVAR MIRANDA [id number] Miranda Narayan 2023-05-18 00:00:00 2023-05-18 00:00:00 Outpatient MIKHAIL SALDIVAR [id number] Miranda Narayan Notes Date/Time Note Provider Source 2023-09-11 17:20:08 [id number]:20:08F ormatting of this note might be different from the original.The lithographic proofer apprentice was used thoughout this visit [id number] signed by Amira Le LVN at 09/11/2023 5:20 PM [id number] SzdjLP1490-86-50I69:20:39Nurse NoteTXT1.2.840.909110.1.13.131.2.7.2. 041231|[id number] for patient qyov25896-8Vkelh NoteLNNARRATIVEFormatted C-CDA narrative [id number] 6863-94-60Q36:20:391.2.840.016534.1.7 2.3.15|1.2.840.099762.1.13.131.2.7.2. [id number] [facility] 2023-08-14 16:09:09 3760-14-64G66:09:09F ormatting of this note is different from the original.Chief ComplaintPatient presents withFollow-up HospitalizationHospital follow up for MIPauDarion Melendrezectronically signed by Raine Fuentes LVN at 08/14/2023 4:10 PM [id number] QgjuPT8767-64-67Z56:10:31Nurse NoteTXT1.2.840.805724.1.13.131.2.7.2. 128866|[id number] for patient gius14178-1Iplxu NoteLNNARRATIVEFormatted C-CDA narrative [id number] 0543-83-98H20:10:311.2.840.939135.1.7 2.3.15|1.2.840.349268.1.13.131.2.7.2. [id number] [facility] 2023-07-04 15:21:12 5358-84-10N86:21:12F ormatting of this note is different from the original.Chief ComplaintPatient presents withFollow-up4 week follow up for B/PPaula Riley Iniguezronically signed by Raine Fuentes LVN at 07/04/2023 3:21 PM [id number] EmfjJR9092-41-00P19:21:52Nurse NoteTXT1.2.840.808368.1.13.131.2.7.2. 344453|[id number] for patient rnve73815-0Gudyl NoteLNNARRATIVEFormatted C-CDA narrative textMary Ville [id number] [facility] [id number] [id number]:21:521.2.840.475108.1.7 2.3.15|1.2.840.694036.1.13.131.2.7.2. [id number] [facility] 2023-06-04 15:18:22 2123-43-09A65:18:22F ormatting of this note is different from the original.Chief ComplaintPatient presents [place] [address]-6Sxytc DxthOM3142-90-15Z43:19:11Nurse NoteTXT1.2.840.021119.1.13.131.2.7.2. 453700|[id number] for patient pasx93626-4Ubusp NoteLNNARRATIVEFormatted C-CDA narrative [id number] [id number]:19:111.2.840.284036.1.7 2.3.15|1.2.840.797802.1.13.131.2.7.2. [id number] [facility] 2023-05-18 16:17:29 [id number]:17:29F ormatting of this note is different from the original.Chief ComplaintPatient presents withEstablish CareLast wellness over a year ago.Hospital F/UFollow up from [facility] last Sunday for discoloration in right [place] [address]-8Cnoea ExeeIV0402-93-26E07:19:39Nurse NoteTXT1.2.840.529279.1.13.131.2.7.2. 794193|[id number] for patient cfml78708-6Bluow NoteLNNARRATIVEFormatted C-CDA narrative [facility] [facility].[id number] 9634-93-52X21:19:391.2.840.088196.1.7 2.3.15|1.2.840.365849.1.13.131.2.7.2. [id number] [facility]"
--- NOTE | 2023-09-30 09:39 | RAD REPORT ---
EXAM DESCRIPTION: Muratza Single View09/30/2023 9:27 am CLINICAL HISTORY: Cough COMPARISON: April 2023 FINDINGS: The lungs appear clear of acute infiltrate. The heart is normal size IMPRESSION: No acute abnormalities displayed
--- NOTE | 2023-09-30 09:47 | ER ---
Nurse's Notes [facility] Name: Mary Montero Age: 62 yrs Sex: Female : 1960 Arrival Date: 09/30/2023 Time: 07:51 Bed 13 Private MD: Diagnosis: Viral infection, unspecified Presentation: 09/29 08:19 Chief complaint: Patient states: Flu like symptoms 2-3 days, was coughing this morning rs5 and began bleeding from the nose. Complains of dizziness and headache. No active bleeding noted at this moment. Coronavirus screen: At this time, the client does not indicate any symptoms associated with coronavirus-19. Ebola Screen: No symptoms or risks identified at this time. Initial Sepsis Screen: Does the patient meet any 2 criteria? No. Patient's initial sepsis screen is negative. Does the patient have a suspected source of infection? No. Patient's initial sepsis screen is negative. Risk Assessment: Do you want to hurt yourself or someone else? Patient reports no desire to harm self or others. Onset of symptoms was September 30, 2023. 08:19 Method Of Arrival: Ambulatory rs5 08:19 Acuity: SADI 3 rs5 Historical: - Allergies: 08:21 Pepto-Bismol; rs5 - PMHx: 08:21 Hypercholesterolemia; Hypertension; rs5 - PSHx: 08:21 section; Cholecystectomy; rs5 - Immunization history:: Adult Immunizations up to date. - Infectious Disease History:: Denies. - Social history:: Smoking status: Patient denies any tobacco usage or history of. Screenin:07 [facility] ED Fall Risk Assessment (Adult) History of falling in the last 3 months, rs5 including since admission No falls in past 3 months (0 pts) Confusion or Disorientation No (0 pts) Intoxicated or Sedated No (0 pts) Impaired Gait No (0 pts) Mobility Assist Device Used No (0 pt) Altered Elimination No (0 pt) Score/Fall Risk Level 0 - 2 = Low Risk Oriented to surroundings, Maintained a safe environment. Abuse screen: Denies threats or abuse. Nutritional screening: No deficits noted. Tuberculosis screening: No symptoms or risk factors identified. Assessment: 08:07 General: Appears in no apparent distress. comfortable, Behavior is calm, cooperative. rs5 Pain: Denies pain. Neuro: Level of Consciousness is awake, alert, obeys commands, Oriented to person, place, time, situation, Reports dizziness. Cardiovascular: Patient's skin is warm and dry. Respiratory: Airway is patent Respiratory effort is even, unlabored, Respiratory pattern is regular, symmetrical. GI: Abdomen is round non-distended, Abd is soft and non tender X 4 quads. : No signs and/or symptoms were reported regarding the genitourinary system. EENT: Reports bleeding from nose for 20 min after coughing this morning prior to arrival. Derm: Skin is intact, Skin is pink, warm \T\ dry. Musculoskeletal: Range of motion: intact in all extremities. 08:07 Reassessment: no active bleeding noted from nostrils . rs5 09:10 Reassessment: Patient and/or family updated on plan of care and expected duration. Pain rs5 level reassessed. Patient is alert, oriented x 3, equal unlabored respirations, skin warm/dry/pink. 09:29 Reassessment: No changes from previously documented assessment. rs5 10:10 Reassessment: Patient and/or family updated on plan of care and expected duration. Pain rs5 level reassessed. Patient is alert, oriented x 3, equal unlabored respirations, skin warm/dry/pink. Vital Signs: 08:19 BP 145 / 68; Pulse 70; Resp 17; Temp 97.9(O); Pulse Ox 99% on R/A; rs5 08:58 BP 137 / 69; Pulse 72; Resp 17; Pulse Ox 99% on R/A; rs5 10:07 BP 135 / 74; Pulse 71; Resp 17; Pulse Ox 99% on R/A; rs5 ED Course: 07:55 Patient arrived in ED. mg5 07:59 Yaya Sandy MD is Attending Physician. ec2 08:07 Patient has correct armband on for positive identification. Placed in gown. Bed in low rs5 position. Call light in reach. Side rails up X2. 08:07 No provider procedures requiring assistance completed. rs5 08:19 Vance Lau, ALE is Primary Nurse. rs5 08:21 Triage completed. rs5 09:28 CXR XRAY In Process Unspecified. EDMS 10:10 IV discontinued, intact, bleeding controlled, No redness/swelling at site. Pressure rs5 dressing applied. Administered Medications: No medications were administered Medication: 08:58 VIS not applicable for this client. rs5 Outcome: 09:46 Discharge ordered by . ec2 10:10 Discharged to home ambulatory, rs5 10:10 Condition: stable 10:10 Discharge instructions given to patient, family, Instructed on discharge instructions, follow up and referral plans. Demonstrated understanding of instructions, follow-up care, 10:12 Patient left the ED. Signatures: Dispatcher [employer] EDGA Alona Martinez RN RN Vance Lau RN RN rs5 Elysia Wells 5 Yaya Sandy MD MD ec2 Corrections: (The following items were deleted from the chart) 10:54 10:20 Reassessment: Patient and/or family updated on plan of care and expected rs5 duration. Pain level reassessed. Patient is alert, oriented x 3, equal unlabored respirations, skin warm/dry/pink. rs5 13:42 10:30 BP 135 / 74; Pulse 71bpm; Resp 17bpm; Pulse Ox 99% RA; rs5 rs5
--- NOTE | 2023-09-30 09:47 | EDPHYS ---
Physician Documentation [facility] Name: Mary Montero Age: 62 yrs Sex: Female : 1960 Arrival Date: 09/30/2023 Time: 07:51 Bed 13 Private MD: ED Physician Yaya Sandy HPI: 09/29 08:26 This 62 yrs old Female presents to ER via Ambulatory with complaints of Nose ec2 Bleed. 08:26 Patient arrives today for evaluation of cough and cold symptoms. Reports that she has ec2 been experiencing cough and congestion ongoing for several days. Reports that today she had noticed some bleeding from her nose which is what prompted evaluation. States that the bleeding has since stopped. Denies any other concerns, no blood thinner use.. Historical: - Allergies: 08:21 Pepto-Bismol; rs5 - PMHx: 08:21 Hypercholesterolemia; Hypertension; rs5 - PSHx: 08:21 section; Cholecystectomy; rs5 - Immunization history:: Adult Immunizations up to date. - Infectious Disease History:: Denies. - Social history:: Smoking status: Patient denies any tobacco usage or history of. ROS: 08:26 Constitutional: as per hpi ec2 Exam: 08:26 Constitutional: GEN: NAD Head: atraumatic Eyes: EOMI Ears: External ears are normal. ec2 Nose: Right nare with dried blood present, no active bleeding. CV: regular rate LUNGS: no respiratory distress ABD: non-distended SKIN: no evidence of rashes MSK: no evidence of trauma NEURO: moves all extremities equally Vital Signs: 08:19 BP 145 / 68; Pulse 70; Resp 17; Temp 97.9(O); Pulse Ox 99% on R/A; rs5 08:58 BP 137 / 69; Pulse 72; Resp 17; Pulse Ox 99% on R/A; rs5 10:07 BP 135 / 74; Pulse 71; Resp 17; Pulse Ox 99% on R/A; rs5 MDM: 08:11 Patient medically screened. ec2 08:26 Data reviewed: vital signs. ED course: Patient arrives today for evaluation of cough ec2 and cold symptoms. Examination is remarkable for well-appearing nontoxic individual otherwise in no acute distress with no active bleeding on my examination. Will obtain chest x-ray for further evaluation of pneumonia. Additionally considering viral infection.. 09:43 ED course: Chest x-ray independently reviewed and interpreted by me, shows no acute ec2 intrathoracic process. On reassessment patient with no recurrence of bleeding. Will discharge home. Return precautions given. 09/29 08:26 Order name: CXR XRAY; Complete Time: 09:43 ec2 Administered Medications: No medications were administered Disposition Summary: 09/30/23 09:46 Discharge Ordered Notes: Location: Home ec2 Condition: Stable ec2 Diagnosis - Viral infection, unspecified ec2 Followup: ec2 - With: Private Physician - When: - Reason: Re-evaluation by your physician Discharge Instructions: - Discharge Summary Sheet ec2 - Viral Illness, Adult ec2 Forms: - Medication Reconciliation Form ec2 - Antibiotic Education ec2 - Prescription Opioid Use ec2 - Patient Portal Instructions ec2 - Leadership Thank You Letter ec2 Signatures: Dispatcher [employer] Vance Sarmiento RN RN rs5 Yaya Sandy MD MD ec2
[2023-09-30 10:30] VITALS: BP 137/69; TEMP 97.9; O2SAT 99
== END 2023-09-30 10:12 | disposition home or self-care (01) ==
LOC: ER 07:51
DX: B34.9 Viral infection, unspecified (principal)
CPT/HCPCS: 71045; 99283

== ENCOUNTER 2023-11-13 18:21 | Emergency (ER) | payer OTHER ==
--- OUTSIDE RECORDS SUMMARY | 2023-11-13 18:24 | XMS REPORT | Continuity of Care Document ---
Author Name Unknown Address [address] [place] [address]. [address] th[address] Address [address] [facility]. 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 ON 9 [id number] 2023 00:00:00 Problems Condition Name Condition Details Condition Category Status Onset Date Resolution Date Last Treatment Date Treating Clinician Comments Source Well adult exam Well adult exam Disease Active 09-10 00:00: 00 Miranda toussaint History of colon polyps History of colon polyps Disease Active 09-10 00:00: 00 Miranda toussaint Morbid obesity Morbid obesity Disease Active 09-10 00:00: 00 Miranda toussaint Moderate episode of recurrent major depressive disorder Moderate episode of recurrent major depressive disorder Disease Active 09-10 00:00: 00 Miranda Brandt Externa [facility] Hospital discharge follow-up Hospital discharge follow-up Disease Active 08-13 00:00: 00 Miranda toussaint History of heart attack History of heart attack Disease Active 08-13 00:00: 00 Miranda Narayan - Externa l PVD (periphera l vascular disease) PVD (periphera l vascular disease) Disease Active 05-18 00:00: 00 Miranda Narayan - Externa l Primary hypertensi on Primary hypertensi on Disease Active 05-18 00:00: 00 Miranda Narayan - Externa l Mass of lower inner quadrant of left breast Mass of lower inner quadrant of left breast Disease Active 05-18 00:00: 00 Miranda Narayan - Externa l Elevated glucose Elevated glucose Disease Active 05-18 00:00: 00 Miranda Monsivaisold - Externa l 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) Disease Active 05-18 00:00: 00 Miranda Narayan - Externa l Skin ulcer (multi HCC) Skin ulcer (multi HCC) Disease Active 05-18 00:00: 00 Miranda Narayan - Externa l Allergies, Adverse Reactions, Alerts Allergy Name Allergy Type Status Severity Reaction(s) Onset Date Inactive Date Treating Clinician Comments Source Bismuth Subsalic ylate Propensi ty to adverse reaction s Active Rash 05-18 00:00: 00 Miranda Narayan - Gomeza l Social History Social Habit Start Date Stop Date Quantity Comments Source Sexual orientation Kristin cm Sylvain - External History of Social function 2023-10-09 00:00:00 2023-10-09 00:00:00 Miranda Narayan - External Alcoholic beverage intake 2023-10-09 00:00:00 2023-10-09 00:00:00 Lifetime non-drinker (finding) Miranda Narayan - [...] Aspirin 81 MG oral Tablet Delayed Response 16 15:20: 01 Yes 99 81mg QD Take 1 tablet (81 mg total) by mouth daily. Indication s: Acute Heart Attack Miranda toussaint Amoxicillin -Pot Clavulanate 500-125 MG oral Tablet 10-08 00:00: 00 Yes [id number] 1{tbl} Take 1 tablet by mouth every 12 hours Please take with food. Miranda toussaint Aspirin 81 MG oral Tablet Delayed Response 09-10 16:11: 55 Yes 99 81mg Take 1 tablet (81 mg total) by mouth daily. Indication s: Acute Heart Attack Miranda toussaint Amlodipine Besylate 10 MG oral Tablet 09-10 00:00: 00 Yes [id number] 10mg QD Take 1 tablet (10 mg total) by mouth daily. Miranda toussaint Atorvastati n Calcium 40 MG oral Tablet 09-10 00:00: 00 Yes [id number] 40mg Take 1 tablet (40 mg total) [...] mg total) by mouth at bedtime. Miranda Sylvain toussaint AMLODIPINE BENZOATE OR 07-03 15:32: 31 07-03 00:00 :00 No [id number] 5mg Take 5 mg by mouth daily. Miranda Sylvain toussaint CYCLOBENZAP RINE HCL OR 07-03 15:32: 31 07-03 00:00 :00 No 10mg QD Take 10 mg by mouth nightly as needed (musce spasm). Miranda toussaint Losartan Potassium (COZAAR) 100 MG oral Tablet 07-03 00:00: 00 Yes [id number] 100mg QD Take 1 tablet (100 mg total) by mouth daily. Miranda toussaint Spironolact one 25 MG oral Tablet 07-03 00:00: 00 Yes [id number] 25mg QD Take 1 tablet (25 mg total) by mouth daily. Miranda toussaint Spironolact one 25 MG oral Tablet 07-02 00:00: 00 07-03 00:00 :00 No [id number] 25mg Take 1 tablet by mouth once daily Miranda toussaint AMLODIPINE BENZOATE OR - 15:17: 14 Yes [id number] 5mg Take 5 mg by mouth daily. Miranda toussaint CYCLOBENZAP RINE HCL OR - 15:17: 14 Yes 10mg QD Take 10 mg by mouth nightly as needed (musce spasm). Miranda toussaint hydroCHLORO thiazide 12.5 MG oral Capsule 05 00:00: 00 Yes [id number] 12.5mg Take 1 capsule (12.5 mg total) by mouth daily. Miranda toussaint CYCLOBENZAP RINE HCL OR 05-18 16:44: 20 Yes 10mg QD Take 10 mg by mouth nightly as needed (musce spasm). Miranda toussaint AMLODIPINE BENZOATE OR 05-18 16:40: 15 Yes [id number] 5mg Take 5 mg by mouth daily. Miranda toussaint TRIMETHOPRI M-SULFAMETH OXAZOLE (BACTRIM DS) 800-160 MG oral Tablet 05-12 00:00: 00 07-03 00:00 :00 No [id number] 1{tbl} Take 1 tablet by mouth every 12 hours FOR 10 DAYS. Miranda toussaint Spironolact one 25 MG oral Tablet - 00:00: 00 Yes [id number] 25mg Take 1 tablet (25 mg total) by mouth daily. Miranda toussaint Losartan Potassium (COZAAR) 100 MG oral Tablet - 00:00: 00 07-03 00:00 :00 No [id number] 100mg Take 1 tablet (100 mg total) by mouth daily. Miranda toussaint Amoxicillin -Pot Clavulanate 875-125 MG oral Tablet - 00:00: 00 Yes [id number] 1{tbl} Take 1 tablet by mouth every 12 hours FOR 10 DAYS. Miranda toussaint Vitamin D, Ergocalcife rol, 1.25 MG (20428 UT) oral Capsule - 00:00: 00 Yes [id number] Take 1 capsule (50,000 units total) by mouth once a week. Miranda toussaint Vitamin D, Ergocalcife rol, 1.25 MG (47436 UT) oral Capsule 03-31 00:00: 00 Yes 1{capsu le} Take 1 capsule (50,000 units total) by mouth once a week. Miranda toussaint Immunizations Ordered Immunization Name Filled Immunization Name Date Status Comments Source Hep A/ Hep B Combo Unknown Completed Kristin Brandt External Tdap- (Boostrix, Adacel) Unknown Completed Miranda Pacheco Shingles IM (Shingrix) Unknown Completed Miranda Pacheco Vital Signs Vital Name Observation Time Observation Value Comments S meron Body weight 2023-10-09 20:16:00 97.523 kg Sanjana Narayan - External BMI 2023-10-09 20:16:00 40.62 kg/m2 Sanjana Pacheco Oxygen saturation in Arterial blood by Pulse oximetry 2023-10-09 20:16:00 97 /min Miranda au - External Systolic blood pressure 2023-10-09 20:16:00 124 mm[Hg] Miranda au - External Diastolic blood pressure 2023-10-09 20:16:00 78 mm[Hg] Miranda Seybo ld - External Heart rate 2023-10-09 20:16:00 68 /min Kelse y Seybold - External Body temperature 2023-10-09 20:16:00 36.67 Agnieszka Miranda Seybold - External Respiratory rate 2023-10-09 20:16:00 18 /min Miranda Seybold - External Body height 2023-10-09 20:16:00 154.9 cm Sanjana ey Seybold - External Systolic blood pressure 2023-09-11 21:04:00 150 mm[Hg] Miranda Seybo ld - External Diastolic blood pressure 2023-09-11 21:04:00 82 mm[Hg] Miranda Seybo ld - External Heart rate 2023-09-11 21:04:00 54 /min Kelse y Seybold - External Body temperature 2023-09-11 21:04:00 36.44 Agnieszka Miranda Seybold - External Respiratory rate 2023-09-11 21:04:00 18 /min Miranda Seybold - External Body height 2023-09-11 21:04:00 154.9 cm Sanjana ey Seybold - External Body weight 2023-09-11 21:04:00 98.884 kg Sanjana ey Seybold - External BMI 2023-09-11 21:04:00 41.19 kg/m2 Sanjana ey Seybold - External Oxygen saturation in Arterial blood by Pulse oximetry 2023-09-11 21:04:00 97 /min Miranda Seybo ld - External Systolic blood pressure 2023-08-14 21:03:00 118 mm[Hg] Miranda Seybo ld - External Diastolic blood pressure 2023-08-14 21:03:00 78 mm[Hg] Miranda Seybo ld - External Heart rate 2023-08-14 21:03:00 [...] 40.06 kg/m2 Sanjana ey Seybold - External Oxygen saturation in Arterial blood by Pulse oximetry 2023-08-14 21:03:00 97 /min Miranda Monsivaiso ld - External Systolic blood pressure 2023-07-04 20:17:00 132 mm[Hg] Miranda Seybo ld - External Diastolic blood pressure 2023-07-04 20:17:00 78 mm[Hg] Miranda Seybo ld - External Heart rate 2023-07-04 20:17:00 68 /min Shaanse y Seybold - External Body temperature 2023-07-04 [...] Pulse oximetry 2023-07-04 20:17:00 98 /min Miranda Bettsybo ld - External Systolic blood pressure 2023-06-04 20:11:00 144 mm[Hg] Miranda Seybo ld - External Diastolic blood pressure 2023-06-04 20:11:00 62 mm[Hg] Miranda Bettsybo ld - External Heart rate 2023-06-04 20:11:00 [...] blood pressure 2023-05-18 22:11:00 132 mm[Hg] Miranda Ackerman ld - External Diastolic blood pressure 2023-05-18 22:11:00 78 mm[Hg] Miranda Monsivaiso ld - External Heart rate 2023-05-18 22:11:00 70 /min Raya Narayan - External Body temperature 2023-05-18 22:11:00 37.11 Agnieszka Miranda Narayan - External Respiratory rate 2023-05-18 22:11:00 15 /min Miranda Narayan - External Body height 2023-05-18 22:11:00 154.9 cm Sanjana Narayan - External Body weight 2023-05-18 22:11:00 96.163 kg Sanjana meza Seybson - External BMI 2023-05-18 22:11:00 40.06 kg/m2 Sanjana Monsivaisold - External Encounters Start Date/Time End Date/Time Encounter Type Admission Type Attending [facility] Care Department Encounter ID Source 2023-10-30 00:00:00 2023-10-30 00:00:00 Outpatient MIKHAIL SALDIVAR [id number] Miranda Seybson 2023-10-16 00:00:00 2023-10-16 00:00:00 Outpatient ROWENA ARREGUIN [id number] Miranda Seybold 2023-10-09 15:30:00 2023-10-09 15:30:00 Outpatient ROWENA ARREGUIN [id number] Miranda Seybold 2023-09-18 16:00:00 2023-09-18 16:00:[address] [facility]ITH [id number] Miranda Seybold 2023-09-11 17:15:00 2023-09-11 17:15:00 Outpatient MOY KEBEDE [id number] Miranda Seybold 2023-09-11 16:30:00 2023-09-11 16:30:00 Outpatient ROWENA ARREGUIN [id number] Miranda Seybold 2023-08-23 00:00:00 2023-08-23 00:00:00 Outpatient MIKHAIL SLADIVAR [id number] Miranda Seybold 2023-08-14 16:30:00 2023-08-14 16:30:00 Outpatient ROWENA ARREGUIN MIRANDA KEBEDE [id number] Miranda Seybold 2023-07-30 10:15:00 2023-07-30 10:15:00 Outpatient MIRANDA KEBEDE [id number] Miranda Seybold 2023-07-30 08:20:00 2023-07-30 08:20:00 Outpatient MIRANDA KEBEDE [id number] Miranda Seybold 2023-07-24 00:00:00 2023-07-24 00:00:00 Outpatient JANNA MIKHAIL MIRANDA KEBEDE [id number] Miranda Seybold 2023-07-09 00:00:00 2023-07-09 00:00:00 Outpatient HUNDBreana MIKHAIL KEBEDE [id number] Miranda Seybold 2023-07-04 16:30:00 2023-07-04 16:30:00 Outpatient LABKei KEBEDE [id number] Miranda Seybold 2023-07-04 15:30:00 2023-07-04 15:30:00 Outpatient RENEBreana MIKHAIL MIRANDA KEBEDE [id number] Miranda Seybold 2023-07-03 00:00:00 2023-07-03 00:00:00 Outpatient HUNDBreana MIKHAIL MIRANDA KEBEDE [id number] Miranda Seybold 2023-06-29 11:15:00 2023-06-29 11:15:00 Outpatient MIRANDA KEBEDE [id number] Miranda Seybold 2023-06-29 09:20:00 2023-06-29 09:20:00 Outpatient MIRANDA KEBEDE [id number] Miranda Seybold 2023-06-11 15:30:00 2023-06-11 15:30:[address] KEBEDE [id number] Miranda Seybold 2023-06-07 00:00:00 2023-06-07 00:00:00 Outpatient HUNDBreana MIKHAIL KEBEDE [id number] Miranda Seybold 2023-06-04 16:15:00 2023-06-04 16:15:00 Outpatient LAB90 MIRANDA EKBEDE [id number] Miranda Narayan 2023-06-04 15:30:00 2023-06-04 15:30:00 Outpatient MIKHAIL SALDIVAR [id number] Miranda Narayan 2023-06-04 00:00:00 2023-06-04 00:00:00 Outpatient MIKHAIL SALDIVAR [id number] Miranda Narayan 2023-05-29 00:00:00 2023-05-29 00:00:00 Outpatient [facility]IL SALDIVAR [id number] [facility] 2023-05-29 00:00:00 2023-05-29 00:00:00 [facility] SALDIV[facility] [id number] [facility]23-05-23 07:55:00 2023-05-23 07:55:00 Outpatient MOY KEEBDE [id number] [facility] 2023-05-22 00:00:00 2023-05-22 00:00:00 Outpatient MIKHAIL SALDIVAR [id number] [facility] 2023-05-18 16:30:00 2023-05-18 16:30:00 Outpatient MIKHAIL SALDIVARSEY [id number] [facility] 2023-05-18 16:30:00 2023-05-18 16:30:00 Outpatient MIKHAIL SALDIVAR [id number] Miranda Narayan 2023-05-18 00:00:00 2023-05-18 00:00:00 Outpatient MIKHAIL SALDIVAR MIRANDA [id number] [facility] Notes Date/Time Note Provider Source 2023-10-09 15:21:05 Chief Complaint Patient presents with Follow-up 4 week follow up. Complaining of left ear popping [facility] 2023-09-11 17:20:08 The family specialist was used thoughout this visit [id number] [facility] 2023-08-14 16:09:09 Chief Complaint Patient presents with Follow-up Hospitalization Hospital follow up for [place] Raine Fuentes LVN [facility] 2023-07-04 15:21:12 Chief Complaint Patient presents with Follow-up 4 week follow up for B/P Raine Fuentes LVN [facility] 2023-06-04 15:18:22 Chief Complaint Patient presents with Follow-up Margaret Nicole MA II [facility]23-05-18 16:17:29 Chief Complaint Patient presents with [facility] Last wellness over a year ago. Hospital F/U Follow up from [facility] last Sunday for discoloration in right leg with a wound. Margaret Nicole MA II [facility]
[2023-11-13] MEDS ORDERED: dexAMETHasone 10 MG/ML VIAL ONE (20:04)
[2023-11-13] MEDS ORDERED: KETOROLAC 30 MG/ML INJ ONE (20:04)
[2023-11-13] MEDS ORDERED: CYCLOBENZAPRINE 10 MG TAB ONE (20:05)
[2023-11-13 20:24] LABS: Specific Gravity 1.028 (1.005-1.030); Urine Bacteria <20 /HPF (<20); Urine Bilirubin NEGATIVE (Negative); Urine Blood Negative (Negative); Urine Clarity Turbid (Clear); Urine Color Yellow (Yellow); Urine Culture Reflex Order NOT NEEDED; Urine Glucose NEGATIVE (Negative); Urine Ketones NEGATIVE (Negative); Urine Micro Reflex YN NO BILL MICROSCOPIC; Urine Mucus Slight /HPF (None Seen); Urine Nitrite NEGATIVE (Negative); Urine Protein TRACE (Negative); Urine RBC <5 /HPF (None Seen); Urine Urobilinogen 1+ (Normal); Urine WBC <5 /HPF (<5); Urine pH 6.5 (5.0-7.0)
--- NOTE | 2023-11-13 21:34 | RAD REPORT ---
EXAM DESCRIPTION: CT - Spine Lumbar Wo Con - 11/13/2023 8:31 pm CLINICAL HISTORY: PAIN COMPARISON: Stone Protocol dated 11/13/2023 TECHNIQUE: Axial noncontrast CT imaging of the lumbar spine was performed with coronal and sagittal re-formatted images. All CT scans are performed using dose optimization technique as appropriate and may include automated exposure control or mA/KV adjustment according to patient size. FINDINGS: No acute lumbar spine fracture seen. No aggressive marrow pattern or malalignment. Paraspinal tissues are normal in thickness. No paraspinal abscess or hematoma seen. Intervertebral disc disease assessment is inherently limited by CT. Within these limitations, at leas t moderate central canal stenosis is appreciated at L4-5 due to circumferential disc bulging, facet a rthropathy and ligamentum flavum buckling. Grade 1 anterolisthesis of L4 over L5 measuring 4 mm contr ibutes to the findings. At least bilateral moderate neural foraminal narrowing at L4-5 and L5-S1, as well as narrowing on the right at L3-4 are appreciated. IMPRESSION: No acute osseous abnormality. Multilevel degenerative changes as above, including sugges tion of at least moderate central canal stenosis at L4-5. Please consider MRI follow-up for assessment of disc disease and neural impingement if clinically ind icated.
--- NOTE | 2023-11-13 21:40 | RAD REPORT ---
EXAM DESCRIPTION: CT - Stone Protocol - 11/13/2023 8:32 pm CLINICAL HISTORY: PAIN COMPARISON: No comparisons TECHNIQUE: Thin cut axial CT imaging of the abdomen and pelvis was performed without IV contrast. Mu ltiplanar reformats were generated and reviewed. All CT scans are performed using dose optimization technique as appropriate and may include automated exposure control or mA/KV adjustment according to patient size. FINDINGS: No suspicious findings in the lung bases. The liver, spleen, left adrenal gland, and pancreas show no suspicious findings. Right adrenal ovoid 1.7 cm nodule with density less than 10 Hounsfield units is most suggestive of a benign adenoma. Gall bladder was surgically removed. Symmetric renal contour, without suspicious parenchymal findings within limits of noncontrast techniq ue. No evidence of radiopaque calculi or hydroureteronephrosis. No dilated bowel loops or bowel wall thickening. No free air, free fluid or inflammatory stranding. N o hernia, mass or bulky lymphadenopathy. The urinary bladder is decompressed limiting evaluation. No suspicious bony findings. IMPRESSION: No acute intra-abdominal process. Incidentally noted small right adrenal nodule suggestive of a benign adenoma.
--- NOTE | 2023-11-13 21:44 | EDPHYS ---
Physician Documentation [facility] Name: Mary Montero Age: 63 yrs Sex: Female : 1960 Arrival Date: 11/13/2023 Time: 18:21 Bed 15 Private MD: ED Physician Yaya Sandy HPI: 11/12 19:31 This 63 yrs old Female presents to ER via Ambulatory with complaints of Back sb4 Pain. 19:31 The patient presents with pain that is acute, with no known mechanism of injury. The sb4 symptoms are located in the left low back. Onset: The symptoms/episode began/occurred just prior to arrival. The pain radiates to the left leg. Associated signs and symptoms: The patient has no apparent associated signs or symptoms. The problem was sustained without known cause. The patient has experienced a previous episode, but today's symptoms are worse. The patient has not recently seen a physician. Historical: - Allergies: 18:52 Pepto-Bismol; db - PMHx: 18:52 Hypercholesterolemia; Hypertension; db - PSHx: 18:52 section; Cholecystectomy; db - Immunization history:: Adult Immunizations unknown. - Infectious Disease History:: Denies. - Social history:: Smoking status: Patient denies any tobacco usage or history of. ROS: 19:31 Constitutional: Negative for fever, chills, and weight loss, sb4 19:31 Back: Positive for pain at rest, radiated pain, of the left low back, 19:31 All other systems are negative, Exam: 19:31 Constitutional: This is a well developed, well nourished patient who is awake, alert, sb4 and in no acute distress. Head/Face: Normocephalic, atraumatic. Eyes: Extra-ocular motions intact. Periorbital areas with no swelling, redness, or edema. ENT: Mucous membranes moist. Cardiovascular: Regular rate and rhythm with a normal S1 and S2. Respiratory: Lungs have equal breath sounds bilaterally, clear to auscultation and percussion. No rales, rhonchi or wheezes noted. No increased work of breathing, no retractions or nasal flaring. Abdomen/GI: Soft, non-tender, no distension. Back: No spinal tenderness. No costovertebral tenderness. Full range of motion. MS/ Extremity: Pulses equal, no cyanosis. Neurovascular intact. Full, normal range of motion. 21:45 Neuro: Orientation: is normal, Mentation: is normal, Motor: moves all fours, Sensation: sb4 is normal, Gait: is steady, appropriate for age, Vital Signs: 18:50 BP 144 / 100; Pulse 65; Resp 18; Temp 98.7; Pulse Ox 96% ; db 20:00 BP 167 / 99; Pulse 54; Resp 16; Pulse Ox 98% on R/A; al5 20:30 BP 155 / 82; Pulse 55; Resp 16; Pulse Ox 98% on R/A; al5 21:30 BP 139 / 72; Pulse 55; Resp 16; Pulse Ox 95% on R/A; al5 MDM: 18:37 Patient medically screened. sb4 21:43 Data reviewed: vital signs, nurses notes, lab test result(s), radiologic studies, and sb4 as a result, I will discharge patient. Counseling: I had a detailed discussion with the patient and/or guardian regarding the historical points, exam findings, and any diagnostic results supporting the discharge/admit diagnosis, the presence of at least one elevated blood pressure reading (>120/80) during this emergency department visit, lab results, radiology results, to return to the emergency department if symptoms worsen or persist or if there are any questions or concerns that arise at home. 11/12 18:59 Order name: [facility]; Complete Time: 20:29 sb4 11/12 18:59 Order name: CT Lumbar Spine Wo Con; Complete Time: 21:37 sb4 11/12 18:59 Order name: CT Stone Protocol; Complete Time: 21:41 sb4 Administered Medications: 20:14 Drug: Cyclobenzaprine PO 10 mg PO once Route: PO; al5 20:43 Follow up: Response: No adverse reaction; Pain is decreased al5 20:15 Drug: Ketorolac IM 30 mg IM once Route: IM; Site: right deltoid; al5 20:43 Follow up: Response: No adverse reaction; Pain is decreased al5 20:15 Drug: Dexamethasone IM 10 mg IM once Route: IM; Site: right deltoid; al5 20:43 Follow up: Response: No adverse reaction; Pain is decreased al5 Disposition Summary: 11/13/23 21:44 Discharge Ordered Notes: Location: Home sb4 Problem: new sb4 Symptoms: have improved sb4 Condition: Stable sb4 Diagnosis - Lumbago with sciatica, left side sb4 Followup: sb4 - With: Private Physician - When: As needed - Reason: Recheck today's complaints, Re-evaluation by your physician Discharge Instructions: - Discharge Summary Sheet sb4 - Sciatica sb4 - Back Exercises, [id number] sb4 Forms: - Patient Portal Instructions sb4 - Leadership Thank You Letter sb4 Prescriptions: - Cyclobenzaprine 10 mg Oral Tablet - take 1 tablet ORAL route every 8 hours As needed; 30 tablet; Refills: 0, sb4 Product Selection Permitted - Diclofenac Sodium 75 mg Oral Tablet Sustained Release - take 1 tablet ORAL route 2 times per day; 30 tablet; Refills: 0, Product sb4 Selection Permitted - Medrol (Santosh) 4 mg Oral Tablets, Dose Pack - take 1 tablet ORAL route as directed - follow package instructions; 1 packet; sb4 Refills: 0, Product Selection Permitted Signatures: Dispatcher [employer] Angelique Mckinney, RN RN Yoly Waddell PA-C PA-C sb4 Gaye Hernandez RN RN al5
--- NOTE | 2023-11-13 21:44 | ER ---
Nurse's Notes [facility] Name: Mary Montero Age: 63 yrs Sex: Female : 1960 Arrival Date: 11/13/2023 Time: 18:21 Bed 15 Private MD: Diagnosis: Lumbago with sciatica, left side Presentation: 11/12 18:49 Chief complaint: Chief complaint: Patient states: LEFT LOWER BACK PAIN X 1 HOUR db RADIATING INTO LEFT ABDOMEN AND RADIATING DOWN INTO LEFT LEG. DENIES N/V. 18:50 Coronavirus screen: Client denies travel out of the [place] in the last 14 days. At this db time, the client does not indicate any symptoms associated with coronavirus-19. Ebola Screen: Patient negative for fever greater than or equal to 101.5 degrees Fahrenheit, and additional compatible Ebola Virus Disease symptoms Patient denies exposure to infectious person. Patient denies travel to an Ebola-affected area in the 21 days before illness onset. No symptoms or risks identified at this time. Initial Sepsis Screen: Does the patient meet any 2 criteria? No. Patient's initial sepsis screen is negative. Does the patient have a suspected source of infection? No. Patient's initial sepsis screen is negative. Risk Assessment: Do you want to hurt yourself or someone else? Patient reports no desire to harm self or others. Onset of symptoms was November 13, 2023. 18:50 Method Of Arrival: Ambulatory db 18:50 Acuity: SADI 3 db Triage Assessment: 18:52 General: Appears in no apparent distress. uncomfortable, Behavior is calm, cooperative. db Pain: Complains of pain in back and chest. GI: Reports lower abdominal pain. Historical: - Allergies: 18:52 Pepto-Bismol; db - PMHx: 18:52 Hypercholesterolemia; Hypertension; db - PSHx: 18:52 section; Cholecystectomy; db - Immunization history:: Adult Immunizations unknown. - Infectious Disease History:: Denies. - Social history:: Smoking status: Patient denies any tobacco usage or history of. Screenin:15 [facility] ED Fall Risk Assessment (Adult) History of falling in the last 3 months, al5 including since admission No falls in past 3 months (0 pts) Confusion or Disorientation No (0 pts) Intoxicated or Sedated No (0 pts) Impaired Gait No (0 pts) Mobility Assist Device Used No (0 pt) Altered Elimination No (0 pt) Score/Fall Risk Level 0 - 2 = Low Risk Oriented to surroundings, Maintained a safe environment, Hourly rounding (assess needs \T\ fall precautionary measures) done. Abuse screen: Denies threats or abuse. Denies injuries from another. Nutritional screening: No deficits noted. Tuberculosis screening: No symptoms or risk factors identified. Assessment: 20:16 General: Appears in no apparent distress. Behavior is calm, cooperative. Pain: al5 Complains of pain in left leg and left low back. Neuro: Level of Consciousness is awake, alert, obeys commands, Oriented to person, place, time, situation. Cardiovascular: Patient's skin is warm and dry. Respiratory: Airway is patent Respiratory effort is even, unlabored, Respiratory pattern is regular, symmetrical. GI: Bowel sounds present X 4 quads. Abd is soft X 4 quads. : No signs and/or symptoms were reported regarding the genitourinary system. EENT: No signs and/or symptoms were reported regarding the EENT system. Derm: Skin is intact, Skin is pink, warm \T\ dry. normal. Musculoskeletal: Reports pain in back and left leg. 21:48 Reassessment: Patient appears in no apparent distress at this time. Patient and/or al5 family updated on plan of care and expected duration. Pain level reassessed. Patient is alert, oriented x 3, equal unlabored respirations, skin warm/dry/pink. Patient states feeling better. Vital Signs: 18:50 BP 144 / 100; Pulse 65; Resp 18; Temp 98.7; Pulse Ox 96% ; db 20:00 BP 167 / 99; Pulse 54; Resp 16; Pulse Ox 98% on R/A; al5 20:30 BP 155 / 82; Pulse 55; Resp 16; Pulse Ox 98% on R/A; al5 21:30 BP 139 / 72; Pulse 55; Resp 16; Pulse Ox 95% on R/A; al5 ED Course: 18:24 Patient arrived in ED. im 18:26 [facility] Cornejo [facility]C [facility] sb4 18:26 Yaya Sandy MD is Attending Physician. sb4 18:50 Arm band placed on left wrist. Patient placed in waiting room. db 18:51 Triage completed. db 19:56 Gaye Hernandez, RN is Primary Nurse. al5 20:15 Patient has correct armband on for positive identification. Bed in low position. Call al5 light in reach. Side rails up X 1. Provided Education on: medications. 20:15 No provider procedures requiring assistance completed. al5 20:30 CT Lumbar Spine Wo Con In Process Unspecified. EDMS 20:30 CT Stone Protocol In Process Unspecified. EDMS 22:04 Patient did not have IV access during this emergency room visit. al5 Administered Medications: 20:14 Drug: Cyclobenzaprine PO 10 mg PO once Route: PO; al5 20:43 Follow up: Response: No adverse reaction; Pain is decreased al5 20:15 Drug: Ketorolac IM 30 mg IM once Route: IM; Site: right deltoid; al5 20:43 Follow up: Response: No adverse reaction; Pain is decreased al5 20:15 Drug: Dexamethasone IM 10 mg IM once Route: IM; Site: right deltoid; al5 20:43 Follow up: Response: No adverse reaction; Pain is decreased al5 Medication: 20:16 VIS not applicable for this client. al5 Outcome: 21:44 Discharge ordered by MD. sb4 22:04 Discharged to home ambulatory, with family, al5 22:04 Condition: good 22:04 Discharge instructions given to patient, Instructed on discharge instructions, follow up and referral plans. medication usage, Demonstrated understanding of instructions, follow-up care, medications, Prescriptions given X 3, 22:04 Patient left the ED. al5 Signatures: Dispatcher [employer] Angelique Mckinney RN RN Yoly Waddell PARere PARere sb4 Gricelda Whitaker Amanda, RN RN al5 Corrections: (The following items were deleted from the chart) 18:51 18:49 Chief complaint: db db
[2023-11-13 22:08] VITALS: TEMP 98.7
[2023-11-13 22:12] VITALS: BP 139/72; O2SAT 95
== END 2023-11-13 22:04 | disposition home or self-care (01) ==
LOC: ER 18:21
DX: M54.42 Lumbago with sciatica, left side (principal)
CPT/HCPCS: 81001; 72131; 76377; 74176; J1100